=== PATIENT | male | born 1940 | race Caucasian/White ===

== ENCOUNTER 2018-07-20 08:23 | Emergency (ER) | payer MEDICARE, OTHER, SELFPAY ==
[2018-07-20 08:29] VITALS: BP 159/84; PULSE 82; RESP 20; O2SAT 97; BMI 26.6
--- NOTE | 2018-07-20 08:54 | ED.MALEGU ---
HPI - Male Genitourinary General Chief complaint: Urogenital-Male Stated complaint: states has not been able to go to the bathroom 8hr Time Seen by Provider: 07/20/18 08:28 Source: patient and family Mode of arrival: ambulatory Limitations: no limitations History of Present Illness HPI Narrative: Patient complains of inability to urinate since yesterday evening. He states that he kept feeling the urge to urinate yesterday afternoon, and kept going to the bathroom, but could only urinate a small trickle. He states that after this, he could not go at all, but was stuck on [facility] overnight. Pt complains of low abdominal discomfort and a strong urge to urinate. Patient states that he has a history of BPH, but has never had to have a catheter for urinary retention. Patient states he has seen a urologist in the past, but is not currently under the care of one. He states he splits his time between [place] and [facility] with his . No other complaints at this time. Patient states his discomfort is about an 8/10. Nothing makes better, and pressure makes worse. Patient denies nausea, vomiting, diarrhea, fevers, or dysuria. He was feeling fine prior to this episode. Related Data Allergies Allergy/AdvReac Type Severity Reaction Status Date / Time No Known Drug Allergies Allergy Unverified 05/20/18 11:52 Review of Systems Review of Systems All systems reviewed & are unremarkable except as noted in HPI and below Constitutional Denies chills, Denies fever(s), Denies lethargy and Denies weakness Eyes Denies change in vision, Denies eye discharge, Denies irritation and Denies loss of vision ENT Ears, Nose, Mouth, and Throat: Denies change in voice, Denies neck pain and Denies sore throat Cardiovascular Denies chest pain, Denies irregular heart rhythm, Denies lightheadedness, Denies palpitations, Denies dyspnea, Denies dyspnea on exertion and Denies orthopnea Respiratory Denies cough, Denies dyspnea, Denies dyspnea on exertion and Denies wheezing Gastrointestinal Gastrointestinal: Reports abdominal pain (Discomfort, low abdomen.), Denies change in bowel habits, Denies diarrhea, Denies nausea and Denies vomiting Genitourinary Denies hematuria, Denies flank pain, Denies urinary incontinence and Denies urinary urgency Comments: Urinary retention Musculoskeletal Denies neck pain Integumentary/Breasts Denies pruritus, Denies erythema, Denies rash and Denies wounds Neurologic Denies confusion, Denies loss of vision and Denies weakness Psychiatric Denies anxiety, Denies confusion, Denies depression, Denies homicidal ideation and Denies suicidal ideation Endocrine Denies palpitations Hematologic/Lymphatic Denies easy bruising Allergic/Immunologic Denies wheezing [facility] Medical History BPH (benign prostatic hyperplasia) (Acute) Surgical History No pertinent past surgical history (Acute) Social History (Reviewed 07/20/18 @ 09: by Deandra Barragan MD) Smoking Status: Current some day smoker Exam Initial Vital Signs Initial Vital Signs: Vital Signs Pulse Rate 82 07/20/18 08:29 Respiratory Rate 20 07/20/18 08:29 Blood Pressure 159/84 H 07/20/18 08:29 Pulse Oximetry 97 07/20/18 08:29 Const General: cooperative and well developed Nutritional Appearance: well nourished Orientation: alert, awake, oriented x3 and not confused HENOK Head: normocephalic and atraumatic Ears: external ears normal Nose: external nose normal and No nasal discharge Face and sinus: face symmetric and No dry mucous membranes Mouth: oral mucosae normal and moist mucous membranes Teeth and gingiva: dentition normal Eyes General: appearance normal, both eyes and all related structures Eyelids: eyelids normal Conjunctivae: conjunctivae normal Sclera: sclerae normal Pupils: PERRL EOM: EOM intact bilaterally Neck Neck: normal visual inspection, trachea midline, No lymphadenopathy, No midline deformity and No JVD Lymphatic: No lymphedema Chest Chest: normal inspection of the chest Resp Effort & Inspection: normal respiratory effort, able to speak in complete sentences, no respiratory distress and no use of accessory muscles Auscultation: clear to auscultation bilaterally, no rales, no rhonchi and no wheezes Cardio Rate: regular rate Rhythm: regular rhythm Heart Sounds: no click, no gallops, no murmurs and no rubs Pulses: normal peripheral pulses GI Inspection: non-distended Palpation: soft, no hepatosplenomegaly, No guarding, No pulsatile mass and tender (Moderate, low abdomen, with distention of bladder.) Back/Spine/Pelvis Back: No CVA tenderness Cervical Spine: cervical ROM normal and No pain with cervical ROM Thoracic/Lumbar Spine: thoracic and lumbar spine normal to inspection Skin General: no rashes or lesions noted, No jaundice and No petechiae Neuro General: alert, oriented x3, gait normal and no focal motor deficits Speech: speech normal Extrem General: full ROM, no clubbing, cyanosis or edema, no pedal edema and no calf tenderness Psych Appearance: well kempt Mental Status: mental status grossly normal Attitude: cooperative Thought Content: normal and suicidality Judgment: judgment good Course Course Narrative: Mcdonnell catheter was placed, with about 1000 cc of output of light yellow urine. This was sent for urinalysis, which was negative. I felt the patient was stable for discharge home. We have discussed the need for follow-up, either with the patient's primary care physician or urologist, this coming week. Patient should leave the Mcdonnell catheter in until followup occurs. We have discussed the usual indications for return. Patient is feeling much better now. Vital Signs - 8 hr 07/20/18 08:29 Pulse Rate 82 Respiratory Rate 20 Blood Pressure 159/84 H Pulse Oximetry 97 MDM - Male Genitourinary Medical Records Attestation: I reviewed the patient's medical records. Lab Data Attestation: I reviewed the patient's lab results. Lab Results 07/20/18 Range/Units 08:45 Urine Color Yellow Urine Appearance Clear Urine pH 5.0 (4.5-8.0) Ur Specific [place] 1.015 (1.000-1.035) Urine Protein Negative (Negative) Urine Glucose (UA) Negative (Negative) g/dL Urine Ketones Negative (NEGATIVE) Urine Occult Blood 2+ H (Negative) Urine Nitrate Negative (Negative) Urine Bilirubin Negative (NEGATIVE) Urine Urobilinogen 0.2 (0.2) E.U./dL Ur Leukocyte Esterase Negative (NEGATIVE) Urine RBC 0-1/hpf (0-5/HPF) Urine WBC None seen (0-5/HPF) Ur Squamous Epith Cells 0-1 /hpf Urine Bacteria Occasional (0-1) (None) Ur Culture Indicated? Cult not indicated Micro UA Comment Not Reportable Discharge Plan Departure Patient Disposition: Home Clinical Impression: Acute urinary retention Discharge Date/Time: 07/20/18 10:42 Interventions: ED Discharge Assessment Last Done: 07/20/18 10:42 Instructions: DI for Urinary Retention in Men Activity Restrictions/Additional Instructions: Please keep the catheter in until seen by either Primary Care or urology. Referrals: [facility] [Provider Group] [facility] [Provider Group] (Please call tomorrow for an appointment to be seen this week.)
[2018-07-20 09:02] LABS: WBC Urine None Seen (0-5/HPF)
[2018-07-20 09:03] LABS: Appearance Urine UA CLEAR; Bilirubin Urine UA NEGATIVE (NEGATIVE); Color Urine UA YELLOW; Glucose Urine UA NEGATIVE (Negative); Ketones Urine UA NEGATIVE (NEGATIVE); Leukocyte Esterase Urine UA NEGATIVE (NEGATIVE); Nitrite Urine UA NEGATIVE (Negative); Occult Blood Urine UA 2+ (Negative); Protein Urine UA NEGATIVE (Negative); Specific Gravity Urine UA 1.015 (1.000-1.035); Urobilinogen Urine UA 0.2 E.U./dL (0.2)
--- NOTE | 2018-07-20 09:03 | ED_ITS ---
HPI - Male Genitourinary General Chief complaint: Urogenital-Male Stated complaint: states has not been able to go to the bathroom 8hr Time Seen by Provider: 07/20/18 08:28 Source: patient and family Mode of arrival: ambulatory Limitations: no limitations History of Present Illness HPI Narrative: Patient complains of inability to urinate since yesterday evening. He states that he kept feeling the urge to urinate yesterday afternoon , and kept going to the bathroom, but could only urinate a small trickle. He states that after this, he could not go at all, but was stuck on [facility] overnight. Pt complains of low abdominal discomfort and a strong urge to urinate. Patient states that he has a history of BPH, but has never had to have a catheter for urinary retention. Patient states he has seen a urologist in the past, but is not currently under the care of one. He states he splits his time between [place] and [facility] with his . No other complaints at this time. Patient states his discomfort is about an 8/10. Nothing makes better, and pressure makes worse. Patient denies nausea, vomiting, diarrhea, fevers, or dysuria. He was feeling fine prior to this episode. Related Data Allergies Allergy/AdvReac Type Severity Reaction Status Date / Time No Known Drug Allergies Allergy Unverified 05/20/18 11:52 Review of Systems Review of Systems All systems reviewed & are unremarkable except as noted in HPI and below Constitutional Denies chills, Denies fever(s), Denies lethargy and Denies weakness Eyes Denies change in vision, Denies eye discharge, Denies irritation and Denies loss of vision ENT Ears, Nose, Mouth, and Throat: Denies change in voice, Denies neck pain and Denies sore throat Cardiovascular Denies chest pain, Denies irregular heart rhythm, Denies lightheadedness, Denies palpitations, Denies dyspnea, Denies dyspnea on exertion and Denies orthopnea Respiratory Denies cough, Denies dyspnea, Denies dyspnea on exertion and Denies wheezing Gastrointestinal Gastrointestinal: Reports abdominal pain (Discomfort, low abdomen.), Denies change in bowel habits, Denies diarrhea, Denies nausea and Denies vomiting Genitourinary Denies hematuria, Denies flank pain, Denies urinary incontinence and Denies urinary urgency Comments: Urinary retention Musculoskeletal Denies neck pain Integumentary/Breasts Denies pruritus, Denies erythema, Denies rash and Denies wounds Neurologic Denies confusion, Denies loss of vision and Denies weakness Psychiatric Denies anxiety, Denies confusion, Denies depression, Denies homicidal ideation and Denies suicidal ideation Endocrine Denies palpitations Hematologic/Lymphatic Denies easy bruising Allergic/Immunologic Denies wheezing [facility] Medical History BPH (benign prostatic hyperplasia) (Acute) Surgical History No pertinent past surgical history (Acute) Social History (Reviewed 07/20/18 @ 09: by Deandra Barragan MD) Smoking Status: Current some day smoker Exam Initial Vital Signs Initial Vital Signs: Vital Signs Pulse Rate 82 07/20/18 08:29 Respiratory Rate 20 07/20/18 08:29 Blood Pressure 159/84 H 07/20/18 08:29 Pulse Oximetry 97 07/20/18 08:29 Const General: cooperative and well developed Nutritional Appearance: well nourished Orientation: alert, awake, oriented x3 and not confused HENMD Head: normocephalic and atraumatic Ears: external ears normal Nose: external nose normal and No nasal discharge Face and sinus: face symmetric and No dry mucous membranes Mouth: oral mucosae normal and moist mucous membranes Teeth and gingiva: dentition normal Eyes General: appearance normal, both eyes and all related structures Eyelids: eyelids normal Conjunctivae: conjunctivae normal Sclera: sclerae normal Pupils: PERRL EOM: EOM intact bilaterally Neck Neck: normal visual inspection, trachea midline, No lymphadenopathy, No midline deformity and No JVD Lymphatic: No lymphedema Chest Chest: normal inspection of the chest Resp Effort & Inspection: normal respiratory effort, able to speak in complete sentences, no respiratory distress and no use of accessory muscles Auscultation: clear to auscultation bilaterally, no rales, no rhonchi and no wheezes Cardio Rate: regular rate Rhythm: regular rhythm Heart Sounds: no click, no gallops, no murmurs and no rubs Pulses: normal peripheral pulses GI Inspection: non-distended Palpation: soft, no hepatosplenomegaly, No guarding, No pulsatile mass and tender (Moderate, low abdomen, with distention of bladder.) Back/Spine/Pelvis Back: No CVA tenderness Cervical Spine: cervical ROM normal and No pain with cervical ROM Thoracic/Lumbar Spine: thoracic and lumbar spine normal to inspection Skin General: no rashes or lesions noted, No jaundice and No petechiae Neuro General: alert, oriented x3, gait normal and no focal motor deficits Speech: speech normal Extrem General: full ROM, no clubbing, cyanosis or edema, no pedal edema and no calf tenderness Psych Appearance: well kempt Mental Status: mental status grossly normal Attitude: cooperative Thought Content: normal and suicidality Judgment: judgment good Course Course Narrative: Mcdonnell catheter was placed, with about 1000 cc of output of light yellow urine. This was sent for urinalysis, which was negative. I felt the patient was stable for discharge home. We have discussed the need for follow-up, either with the patient's primary care physician or urologist, this coming week. Patient should leave the Mcdonnell catheter in until followup occurs. We have discussed the usual indications for return. Patient is feeling much better now. Vital Signs - 8 hr 07/20/18 08:29 Pulse Rate 82 Respiratory Rate 20 Blood Pressure 159/84 H Pulse Oximetry 97 MDM - Male Genitourinary Medical Records Attestation: I reviewed the patient's medical records. Lab Data Attestation: I reviewed the patient's lab results. Lab Results 07/20/18 Range/Units 08:45 Urine Color Yellow Urine Appearance Clear Urine pH 5.0 (4.5-8.0) Ur Specific [place] 1.015 (1.000-1.035) Urine Protein Negative (Negative) Urine Glucose (UA) Negative (Negative) g/dL Urine Ketones Negative (NEGATIVE) Urine Occult Blood 2+ H (Negative) Urine Nitrate Negative (Negative) Urine Bilirubin Negative (NEGATIVE) Urine Urobilinogen 0.2 (0.2) E.U./dL Ur Leukocyte Esterase Negative (NEGATIVE) Urine RBC 0-1/hpf (0-5/HPF) Urine WBC None seen (0-5/HPF) Ur Squamous Epith Cells 0-1 /hpf Urine Bacteria Occasional (0-1) (None) Ur Culture Indicated? Cult not indicated Micro UA Comment Not Reportable Discharge Plan Departure Patient Disposition: Home Clinical Impression: Acute urinary retention Discharge Date/Time: 07/20/18 10:42 Interventions: ED Discharge Assessment Last Done: 07/20/18 10:42 Instructions: DI for Urinary Retention in Men Activity Restrictions/Additional Instructions: Please keep the catheter in until seen by either Primary Care or urology. Referrals: [facility] [Provider Group] [facility] [Provider Group] (Please call tomorrow for an appointment to be seen this week.)
[2018-07-20 09:10] LABS: Bacteria Urine Occasional (0-1); RBC Urine 0-1/HPF (0-5/HPF); Squamous Epithelial Cell Urine 0-1 /HPF
[2018-07-20 09:11] LABS: Culture Indicated Urine Cult Not Indicated
[2018-07-20 09:39] VITALS: BP 119/79; RESP 15; O2SAT 97
[2018-07-20 10:37] VITALS: BP 117/64; PULSE 85; RESP 18; O2SAT 100
--- NOTE | 2018-07-20 10:40 | PC.NURSE ---
pt discharged with a leg bag with his catheter. instructions reviewed. pt demonstrated and verbalized an understanding.
== END 2018-07-20 10:42 | disposition home or self-care (01) ==
PROVIDERS: Emergency Provider Emergency Medicine
DX: R33.9 Retention of urine, unspecified (principal)
CPT/HCPCS: 51701; 51798; 81001; 99283; 99284

== ENCOUNTER → 2019-05-12 14:30 | Outpatient (CLI) | payer MEDICARE, OTHER, SELFPAY ==
--- NOTE | 2019-05-12 | DI.RAD.S_ITS ---
PROCEDURE: XR CHEST 2V INDICATIONS: COUGH, HISTORY OF SMOKING TECHNIQUE: 2 views of the chest were acquired. COMPARISON: None. FINDINGS: Surgical changes and devices: None. Lungs and pleura: Lungs are clear. No pleural effusions or pneumothorax. There is a calcified granuloma in the right lower lobe. Mediastinum: Mediastinal contours are normal. Heart size is normal. Bones and chest wall: No suspicious bony abnormalities. Soft tissues appear unremarkable. IMPRESSION: 1. No acute cardiopulmonary disease. 2. A calcified granuloma in the right lower lobe. Dictated by: Chris Nicole M.D. on 05/12/2019 at 16:18 Approved by: Chris Nicole M.D. on 05/12/2019 at 16:20
== END ==
PROVIDERS: Visit Provider Internal Medicine
DX: R05 Cough (principal); J84.10 Pulmonary fibrosis, unspecified; Z87.891 Personal history of nicotine dependence
CPT/HCPCS: 71046

== ENCOUNTER → 2019-06-26 08:50 | Outpatient (CLI) | payer MEDICARE, OTHER, SELFPAY ==
--- NOTE | 2019-07-03 08:44 | PM.PFT.1 ---
Pulmonary Function Test Referral & Results Date Patient Seen: 06/26/19 Requesting provider: Robert Riley Results: The spirometry demonstrates an FVC of 4.10 L which is 113% of predicted. The FEV1 was measured at 2.18 L which is 84% of predicted. The FEV1/FVC ratio was 53 which is 73% of predicted. Following the administration of bronchodilator there was a 60% improvement in FEV1 and a 60% improvement in FEF 25-75%. Lung volumes show an SVC of 4.21 L which is 105% of predicted. The diffusing capacity was measured at 25.53 which is 90% of predicted. The maximum voluntary ventilation was normal Interpretation: This study demonstrates mild obstructive lung disease based on reduction FEV1 and shape a flow volume loop with evidence of benefit following bronchodilator as above
== END ==
PROVIDERS: PCP Internal Medicine; Visit Provider Internal Medicine
DX: R05 Cough (principal); F17.200 Nicotine dependence, unspecified, uncomplicated
CPT/HCPCS: 94060; 94726; 94729

== ENCOUNTER → 2019-12-04 14:29 | Outpatient (CLI) | payer MEDICARE, SELFPAY ==
[2019-12-04 15:22] LABS: Alanine Aminotransferase 18 IU/L (<50); Albumin 4.1 g/dL (3.5-5.0); Albumin Globulin Ratio 1.2 (1.0-2.8); Alkaline Phosphatase 92 U/L (38-126); Aspartate Aminotransferase 33 IU/L (17-59); BUN Creatinine Ratio 23.7 (6-22); Bilirubin Total 0.4 mg/dL (0.2-1.3); Blood Urea Nitrogen 18 mg/dL (9-20); Calcium 9.3 mg/dL (8.4-10.2); Carbon Dioxide 27 mmol/L (22-32); Chloride 108 mmol/L (98-107); Estimated Glomerular Filt Rate > 60.0 mL/min (>60); Globulin 3.3 g/dL (1.7-4.1); Glucose 102 mg/dL (80-110); HEMOLYSIS < 15 (0-50); Potassium 4.6 mmol/L (3.4-5.1); Sodium 141 mmol/L (137-145); Total Protein 7.4 g/dL (6.3-8.2)
[2019-12-04 16:15] LABS: TSH w/ Reflex to FT4 0.56 uIU/mL (0.47-4.68)
[2019-12-05 07:14] LABS: PSA Free % 24.6 % (.); PSA, Total 6.3 ng/mL (0.0-4.0)
== END ==
PROVIDERS: PCP Internal Medicine; Referring Provider Internal Medicine; Visit Provider Internal Medicine
DX: I48.92 Unspecified atrial flutter (principal); N40.1 Benign prostatic hyperplasia with lower urinary tract symptoms; R31.9 Hematuria, unspecified
CPT/HCPCS: 36415; 80053; 84153; 84154; 84443

== ENCOUNTER 2020-01-08 06:58 | Emergency (ER) | payer MEDICARE, SELFPAY ==
[2020-01-08 07:17] VITALS: BP 185/90; PULSE 72; RESP 15; TEMP 36.6; O2SAT 97; BMI 27.3
--- NOTE | 2020-01-08 08:01 | ED_ITS ---
HPI - Male Genitourinary General Chief complaint: Urogenital-Male Stated complaint: urinary retention Time Seen by Provider: 01/08/20 07:02 Source: patient Mode of arrival: Ambulatory Limitations: no limitations History of Present Illness HPI Narrative: 79-year-old gentleman with a history of BPH who presents with his now 3rd episode of acute urinary retention. He currently is on 0.4 mg of tamsulosin. His urologist is Dr. Tobar. He describes no changes in medications, no recent antihistamines, nothing to obviously cause an episode of acute urinary retention. Related Data Home Medications Medication Instructions Recorded Confirmed No Known Home Medications 12/31/18 12/31/18 Allergies Allergy/AdvReac Type Severity Reaction Status Date / Time No Known Drug Allergies Allergy Verified 12/31/18 11:46 Review of Systems Review of Systems Narrative: Pertinent positive and negative findings as per HPI Remainder of review of systems is otherwise unremarkable for Constitutional: Fevers, chills, weakness ENT: No sore throat, neck pain, ear pain CV: Chest pain, palpitations, dyspnea on exertion Respiratory: Cough, wheeze, dyspnea GI: Nausea, vomiting, diarrhea, change in bowel habits, black or bloody stools MS: Muscle weakness, numbness, joint swelling or warmth Skin: Rashes, nonhealing lesions Neuro: Syncope, dizziness, tingling Patient History Medical History BPH (benign prostatic hyperplasia) (Acute) Surgical History No pertinent past surgical history (Acute) Social History Smoking Status: Current some day smoker Smoking Status: Current some day smoker alcohol intake frequency: a few times a week Substance Use Type: does not use Exam Narrative Exam Narrative: General: Healthy appearing, in no acute distress. Able to give a complete and coherent history. Well-nourished well-developed Neck: No JVD, supple Respiratory: Lungs are clear to auscultation, no wheezing no rales no rhonchi. Full and symmetrical air movement Cardiac: Regular rate and rhythm no murmurs no bruits Abdomen: Soft nontender good bowel tones, no flank pain Skin: Warm and dry, no rashes Psych: Cooperative, appropriate insight and affect Mcdonnell catheter placed without difficulty. Initial return of 800 cc of clear urine Initial Vital Signs Initial Vital Signs: Vital Signs Temperature 97.9 F 01/08/20 07:17 Pulse Rate 72 01/08/20 07:17 Respiratory Rate 15 01/08/20 07:17 Blood Pressure 185/90 H 01/08/20 07:17 Pulse Oximetry 97 01/08/20 07:17 Course Orders Ordered: ED Orders 01/08/20 07:35 Urine Microscopic Stat Discontinued Medications Lidocaine HCl (Urojet) 5 ml TOP NOW ONE Stop: 01/08/20 07:20 Vital Signs Vital signs: Vital Signs - 8 hr 01/08/20 07:17 Temperature 97.9 F Pulse Rate 72 Respiratory Rate 15 Blood Pressure 185/90 H Pulse Oximetry 97 MDM - Male Genitourinary Medical Records Attestation: I reviewed the patient's medical records. Lab Data Labs: Lab Results 01/08/20 Range/Units 07:35 Urine RBC 5-10/hpf H (0-5/HPF) Urine WBC 0-1/hpf (0-5/HPF) Urine Bacteria Few (2-10) H (None) Ur Culture Indicated? Cult not indicated Urine Dip Bedside Urine Glucose Negative Bedside Urine Bilirubin - Negative Bedside Urine Ketone - Negative Urine Specific [place] 1.020 Bedside Urine Occult Blood + Bedside Urine pH 6.0 Bedside Urine Protein - Negative Bedside Urine Urobilinogen - Negative Bedside Urine Nitrite - Negative Bedside Urine Leukocytes - Negative Esterase MDM Narrative Medical decision making narrative: Acute urinary retention is 79-year-old gentleman with a history of BPH already on 0.4 mg of tamsulosin. Mcdonnell catheter is placed. Will have him contact Dr. Tobar's office for follow-up next week with removal of urinary catheter and suggestions on management of his BPH with recurrent acute urinary retention. He is comfortable with managing a Mcdonnell at h ome, given I leg bag and discharged home. Discharge Plan Departure Patient Disposition: Home Clinical Impression: Acute retention of urine BPH (benign prostatic hyperplasia) Qualifiers: Lower urinary tract symptom presence: symptoms present Lower urinary tract symptom detail: urinary obstruction Qualified Code(s): N40.1 - Benign prostatic hyperplasia with lower urinary tract symptoms Instructions: DI for Urinary Retention in Men Activity Restrictions/Additional Instructions: Thank you for coming in today You had approximately 800 cc of urine in your bladder when we put the Mcdonnell ca theter in. This is enough urine to definitely cause significant pain. I am going to suggest that you increase your current dose of 0.4 mg, 1 pill, of tamsulosin/Flomax up to 2 pills a day. You can take both of these at 1 time or you can spread it so that you are taking 1 in the morning and 1 in the evening. When you get home this evening, please contact Dr. Tobar's office for an emergency room follow-up regarding acute urinary retention. They will take the catheter out for you and you and Dr. Tobar will need to discuss further management and whether you actually need any type of procedure to help with your enlarged prostate. If you have any difficulties with your catheter, developed fevers chills or other complications please feel free to return to the emergency department. I wish you the best Prescriptions: No Action No Known Home Medications RF: 0 Referrals: Robert Riley MD [Primary Care Provider] -
[2020-01-08 08:15] LABS: Bacteria Urine Few (2-10); RBC Urine 5-10/HPF (0-5/HPF); WBC Urine 0-1/HPF (0-5/HPF)
[2020-01-08 08:16] LABS: Culture Indicated Urine Cult Not Indicated
[2020-01-08 08:35] VITALS: BP 116/56; PULSE 62; RESP 16; O2SAT 98
== END 2020-01-08 08:42 | disposition home or self-care (01) ==
PROVIDERS: Emergency Provider Emergency Medicine; PCP Internal Medicine
DX: R33.9 Retention of urine, unspecified (principal); N40.1 Benign prostatic hyperplasia with lower urinary tract symptoms
CPT/HCPCS: 51798; 81003; 81015; 99283; 99284

== ENCOUNTER 2020-01-31 00:31 | Emergency (ER) | payer MEDICARE, SELFPAY ==
[2020-01-31 00:31] VITALS: BP 155/70; PULSE 78; RESP 16; TEMP 36.6; O2SAT 97; BMI 26.6
[2020-01-31 00:45] VITALS: BP 155/70; PULSE 75; RESP 16; O2SAT 97
[2020-01-31] MEDS: LIDOCAINE 2% (UROJET) 5 ML GEL TOP (00:46)
--- NOTE | 2020-01-31 01:26 | ED_ITS ---
HPI - Male Genitourinary General Chief complaint: Urogenital-Male Stated complaint: states urinary problem Time Seen by Provider: 01/31/20 00:37 History of Present Illness HPI Narrative: 79-year-old gentleman with recurrent episodes of acute urinary retention. Most recently seen January 07 the Mcdonnell catheter was placed. Was seen by his urologist, Dr. Tobar, and catheter was min removed. He states that he has had to self cath twice in the interval. This evening he noted lanie blood comin g from his penis with increasing pain in his bladder. No fever, cough, chills, diarrhea, vomiting, chest pain, dyspnea, flank pain. Related Data Home Medications Medication Instructions Recorded Confirmed No Known Home Medications 12/31/18 12/31/18 Allergies Allergy/AdvReac Type Severity Reaction Status Date / Time No Known Drug Allergies Allergy Verified 12/31/18 11:46 Review of Systems Review of Systems Narrative: Pertinent positive and negative findings as per HPI Remainder of review of systems is otherwise unremarkable for Constitutional: Fevers, chills, weakness ENT: No sore throat, neck pain, ear pain CV: Chest pain, palpitations, dyspnea on exertion Respiratory: Cough, wheeze, dyspnea GI: Nausea, vomiting, diarrhea, change in bowel habits, black or bloody stools MS: Muscle weakness, numbness, joint swelling or warmth Neuro: Syncope, dizziness, tingling Patient History Medical History (Updated 01/31/20 @ 17:36 by Jeffrey Corbin MD) BPH (benign prostatic hyperplasia) (Acute) Paroxysmal atrial fibrillation (Acute) Surgical History No pertinent past surgical history (Acute) Social History Smoking Status: Current some day smoker Smoking Status: Current some day smoker alcohol intake frequency: a few times a week Substance Use Type: does not use Exam Narrative Exam Narrative: General: Alert appropriate in no acute distress Respiratory: Able to speak in full sentences, no obvious respiratory distress Skin: No obvious rashes, warm and dry Neurologic: Grossly intact no obvious asymmetries or abnormalities Psych, appropriate insight and affect, cooperative : 350 cc noted on bladder scan. Initial Mcdonnell catheter is placed with lanie blood at approximately 300 cc of fluid returned. Three way Mcdonnell catheter is placed to irrigate clots. Initial Vital Signs Initial Vital Signs: Vital Signs Temperature 97.8 F 01/31/20 00:31 Pulse Rate 78 01/31/20 00:31 Respiratory Rate 16 01/31/20 00:31 Blood Pressure 155/70 H 01/31/20 00:31 Pulse Oximetry 97 01/31/20 00:31 Course Orders Ordered: Discontinued Medications Ciprofloxacin (Cipro) 500 mg PO NOW ONE Stop: 01/31/20 05:38 Last Admin: 01/31/20 05:52 Dose: 500 mg Documented by: DIOGENES Lidocaine HCl (Urojet) 5 ml TOP NOW ONE Stop: 01/31/20 00:45 Last Admin: 01/31/20 00:46 Dose: 5 ml Documented by: DIOGENES Oxycodone/Acetaminophen (Percocet 5/325) 1 tab PO NOW ONE Stop: 01/31/20 01:29 Last Admin: 01/31/20 02:00 Dose: 1 tab Documented by: DOREEN Vital Signs Vital signs: Vital Signs - 8 hr 01/31/20 00:31 01/31/20 00:45 01/31/20 03:00 Temperature 97.8 F Pulse Rate 78 75 74 Respiratory Rate 16 16 16 Blood Pressure 155/70 H 155/70 H 115/56 L Pulse Oximetry 97 97 97 [facility] - Male Genitourinary Medical Records Attestation: I reviewed the patient's medical records. [facility] Narrative Medical decision making narrative: Initially single Mcdonnell catheter is placed with large amount of clots and gross blood returned. This was removed and a 3 way Mcdonnell was placed with 2L of fluid for irrigation. Significant difficulty in removing a large number of clots. By the end of the initial 2 L fluid,it was still a medium pink but no significant clots were returning. A 2nd 2L of irrigation to try to get to much promotion writer pink prior to discharge home with Mcdonnell catheter in place. After a total of 9 L of bladder irrigation it does look like all of the clots have been removed and there is no continued active bleeding He currently is on Eliquis for an episode of paroxysmal atrial fibrillation approximately 6 months ago. He has not had any recurrent episodes. Will ask him to hold his Eliquis until we have had a chance to get the urinary bleeding resolved. Will need follow-up with urology and primary care early next week Discharge Plan Departure Patient Disposition: Home Clinical Impression: Acute urinary retention, Gross hematuria Discharge Date/Time: 01/31/20 07:42 Instructions: DI for Urinary Retention in Men Activity Restrictions/Additional Instructions: Thank you for coming in today It is hard to know if you had bleeding that caused a clot that cause the acute urinary retention or whether the urinary retention simply occurred caused more bladder distension with increased bleeding and clots. Either way, you had 9 L of fluid to irrigate your bladder to get all the clots out of there and it does not look like you are continuing to bleed at this time. Please stop your Eliquis for at least the next 4 days to allow the bleeding site in your bladder to heal. Mcdonnell catheter is left in place on discharge today. Please contact Dr. Tobar's office on Saturday to arrange for definitive follow-up. I wish you the best Prescriptions: No Action No Known Home Medications RF: 0 Referrals: Robert Riley MD [Primary Care Provider] -
[2020-01-31] MEDS: OXYCODONE/ACETAMINOPHEN 5/325 TABLET 1 TAB PO (02:00)
[2020-01-31 03:00] VITALS: BP 115/56; PULSE 74; RESP 16; O2SAT 97
[2020-01-31 05:30] VITALS: BP 117/72; PULSE 68; RESP 16; O2SAT 99
[2020-01-31 05:36] VITALS: BP 117/72; PULSE 68; RESP 16; O2SAT 97; O2SAT 99
[2020-01-31] MEDS: CIPROFLOXACIN 500 MG TABLET PO (05:52)
--- NOTE | 2020-01-31 07:12 | PC.NURSE ---
provider ordered leg bag. leg bag placed. patient tolerated well.
[2020-01-31 07:16] VITALS: BP 133/73; PULSE 70; RESP 16; O2SAT 97
== END 2020-01-31 07:42 | disposition home or self-care (01) ==
PROVIDERS: Emergency Provider Emergency Medicine; PCP Internal Medicine
DX: R33.8 Other retention of urine (principal); R31.0 Gross hematuria; I48.0 Paroxysmal atrial fibrillation; Z79.01 Long term (current) use of anticoagulants; T83.098A Other mechanical complication of other urinary catheter, initial encounter
CPT/HCPCS: 51700; 51701; 51798

== ENCOUNTER 2020-01-31 10:44 | Observation (INO) | payer MEDICARE, SELFPAY ==
[2020-01-31] VITALS (17 sets, daily range): BP systolic 107–184; BP diastolic 56–89; PULSE 60–85; RESP 12–20; TEMP 36.4–37; O2SAT 94–99; BMI 26.6
[2020-01-31 11:46] LABS: Add Manual Diff / Slide Review NO; Basophils Absolute Auto 100 /uL (0-100); Basophils Percent Auto 0.8 % (0-2); Eosinophils Absolute Auto 200 /uL (0-450); Eosinophils Percent Auto 1.4 % (2-4); Hematocrit 38.3 % (41-53); Hemoglobin 12.5 g/dL (13.5-17.5); Lymphocytes Absolute Auto 1400 /uL (1100-4500); Lymphocytes Percent Auto 12.1 % (25-40); Mean Corpuscular HGB Conc 32.5 % (30-36); Mean Corpuscular Hemoglobin 28.7 PG (26-34); Mean Corpuscular Volume 88.1 fL (80-100); Monocytes Absolute Auto 700 /uL (0-900); Monocytes Percent Auto 6.4 % (3-14); Neutrophils Absolute Auto 9200 /uL (1500-7000); Neutrophils Percent Auto 79.3 % (50-75); Platelet Count 240 X10^3/uL (150-400); Red Blood Cell Count 4.34 X10^6/uL (4.5-5.9); Red Cell Distribution Width 13.9 % (11.6-14.8); White Blood Cell Count 11.5 X10^3/uL (4.5-11.0)
[2020-01-31 11:52] LABS: INR 1.3 (0.9-1.3); Prothrombin Time 14.6 SECONDS (10.1-12.7)
[2020-01-31 11:55] LABS: PTT Partial Thromboplastin Tim 43 SECONDS (26.4-36.2)
[2020-01-31 11:56] LABS: Blood Urea Nitrogen 19 mg/dL (9-20); Calcium 9.6 mg/dL (8.4-10.2); Carbon Dioxide 29 mmol/L (22-32); Chloride 107 mmol/L (98-107); Estimated Glomerular Filt Rate > 60.0 mL/min (>60); Glucose 103 mg/dL (80-110); HEMOLYSIS < 15 (0-50); Sodium 140 mmol/L (137-145)
--- NOTE | 2020-01-31 12:26 | ED_ITS ---
HPI - Male Genitourinary General Chief complaint: Urogenital-Male Stated complaint: Catheter jammed Time Seen by Provider: 01/31/20 11:23 Source: patient Mode of arrival: Ambulatory Limitations: no limitations History of Present Illness HPI Narrative: The patient presents with urinary retention and hematuria. The doris hernandez developed urinary retention January 07, for which a Mcdonnell was placed. He had a 1 time visit with Urology, Dr. Tobar. He has not yet had urology follow-up. Who presented last night with significant hematuria, his irrigated frequently through the night. This morning, his urine seemed to clear, he was discharged. He has a prior history of PAF, but has not experienced a known episode of AFib for years. Apparently his PCM has consider stopping Eliquis. A cardiology consult was pending. The ER doctor last night instructed the patient to stop the Eliquis. The patient return the ER shortly after discharge, with recurrent hematuria and lower abdominal pain consistent with urinary retention once again. His Mcdonnell was changed, a 22 gauge was placed. Large amounts of clots were released. Pain improved. The patient has been managed in the ER this time for total of 6 hours, he is still experiencing intermittent clots with symptoms of obstruction. He has no URI symptoms, no fever chills, no cough or dyspnea. Other than the abdominal pain noted above he has no other abdominal symptoms. He has no GI symptoms. Related Data Home Medications Medication Instructions Recorded Confirmed No Known Home Medications 12/31/18 12/31/18 Allergies Allergy/AdvReac Type Severity Reaction Status Date / Time No Known Drug Allergies Allergy Verified 12/31/18 11:46 Review of Systems Constitutional Constitutional: Denies chills, Denies fever(s), Denies lethargy and Denies weakness ENT Ears, Nose, Mouth, and Throat: Denies dizziness, Denies nasal congestion and Denies sore throat Cardiovascular Cardiovascular: Denies chest pain, Denies irregular heart rhythm, Denies lig htheadedness, Denies palpitations, Denies dyspnea and Denies dyspnea on exertion Respiratory Respiratory: Denies cough, Denies dyspnea, Denies dyspnea on exertion and Denies wheezing Gastrointestinal Gastrointestinal: Denies abdominal pain, Denies diarrhea, Denies nausea and Denies vomiting Genitourinary Genitourinary: Reports as per HPI Genitourinary: Reports as per HPI Integumentary/Breasts Skin/Breast: Denies erythema and Denies rash Neurologic Neurologic: Denies dizziness and Denies weakness Endocrine Endocrine: Denies palpitations Allergic/Immunologic Allergic/Immunologic: Denies wheezing Patient History Medical History BPH (benign prostatic hyperplasia) (Acute) Paroxysmal atrial fibrillation (Acute) Surgical History No pertinent past surgical history (Acute) Social History Smoking Status: Current some day smoker Smoking Status: Current some day smoker alcohol intake frequency: a few times a week Substance Use Type: does not use Exam Initial Vital Signs Initial Vital Signs: Vital Signs Temperature 97.5 F L 01/31/20 10:58 Pulse Rate 77 01/31/20 10:58 Respiratory Rate 16 01/31/20 10:58 Blood Pressure 145/70 H 01/31/20 10:58 Pulse Oximetry 95 01/31/20 10:58 Const General: cooperative and well developed Nutritional Appearance: well nourished Resp Effort & Inspection: normal respiratory effort and able to speak in complete sentences Auscultation: clear to auscultation bilaterally, no rales, no rhonchi and no wheezes Cardio Rate: regular rate Rhythm: regular rhythm Heart Sounds: S1 normal, S2 normal, no click, no gallops, no murmurs and no rubs Pulses: normal peripheral pulses GI Other: Suprapubic distention with tenderness. No guarding or rebound. Normal bowel sounds. Abdomen is otherwise benign. Testes: normal Other: Mcdonnell is in place, the phallus is otherwise normal. Back/Spine/Pelvis Back: No CVA tenderness Course Course Course Narrative: The patient has required intermittent bladder irrigation for hours. His labs are stable. We have been unable to use discharge him due to recurrent symptoms. I have discussed the case with the hospitalist, Dr. Moore. The patient will be admitted. Orders Ordered: ED Orders 01/31/20 11:39 Basic Metabolic Panel Stat Complete Blood Count AUTO DIFF Stat PTT [Partial Thromboplastin Time] Stat Prothrombin Time INR Stat Hydromorphone HCl (Dilaudid) 0.5 mg IV Q2H PRN PRN Reason: Pain, Severe (7-10) Sodium Chloride (Normal Saline 0.9%) 1,000 mls @ 125 mls/hr IV CONT SALTY Sodium Chloride (Normal Saline 0.9%) 1,000 mls @ 125 mls/hr IV CONT SALTY Discontinued Medications Hydromorphone HCl (Dilaudid) 0.5 mg IM NOW ONE Stop: 01/31/20 13:04 Last Admin: 01/31/20 13:07 Dose: 0.5 mg Documented by: HANNAH Lidocaine HCl (Urojet) 5 ml TOP NOW ONE Stop: 01/31/20 12:20 Last Admin: 01/31/20 13:08 Dose: Not Given Documented by: HANNAH Vital Signs Vital signs: Vital Signs - 8 hr 01/31/20 10:58 01/31/20 11:26 01/31/20 11:30 Temperature 97.5 F L Pulse Rate 77 67 65 Respiratory Rate 16 Blood Pressure 145/70 H 107/61 Pulse Oximetry 95 95 94 01/31/20 12:00 01/31/20 12:30 01/31/20 13:00 Temperature Pulse Rate 75 70 63 Respiratory Rate Blood Pressure 147/69 H 165/85 H Pulse Oximetry 98 98 99 01/31/20 13:30 01/31/20 14:00 01/31/20 14:16 Temperature Pulse Rate 85 73 62 Respiratory Rate Blood Pressure 184/89 H 107/56 L Pulse Oximetry 98 96 98 01/31/20 14:19 01/31/20 14:30 01/31/20 15:00 Temperature Pulse Rate 63 67 70 Respiratory Rate Blood Pressure 111/64 115/63 Pulse Oximetry 98 97 96 MDM - Male Genitourinary Lab Data Result diagrams: 01/31/20 11:39 01/31/20 11:39 Labs: Lab Results 01/31/20 01/31/20 01/31/20 Range/Units 11:39 11:39 11:39 WBC 11.5 H (4.5-11.0) X10^3/uL RBC 4.34 L (4.5-5.9) X10^6/uL Hgb 12.5 L (13.5-17.5) g/dL Hct 38.3 L (41-53) % MCV 88.1 (80-100) fL MCH 28.7 (26-34) PG MCHC 32.5 (30-36) % RDW 13.9 (11.6-14.8) % Plt Count 240 (150-400) X10^3/uL Neut % (Auto) 79.3 H (50-75) % Lymph % (Auto) 12.1 L (25-40) % [place] % (Auto) 6.4 (3-14) % Eos % (Auto) 1.4 L (2-4) % Baso % (Auto) 0.8 (0-2) % Neut # (Auto) 9200 H (8354-2993) /uL Lymph # (Auto) 1400 (4707-9783) /uL [place] # (Auto) 700 (0-900) /uL Eos # (Auto) 200 (0-450) /uL Baso # (Auto) 100 (0-100) /uL PT 14.6 H (10.1-12.7) SECONDS INR 1.3 (0.9-1.3) APTT 43 H (26.4-36.2) SECONDS Sodium 140 (137-145) mmol/L Potassium 5.0 (3.4-5.1) mmol/L Chloride 107 (98-107) mmol/L Carbon Dioxide 29 (22-32) mmol/L BUN 19 (9-20) mg/dL Creatinine 0.76 (0.66-1.25) mg/dL Estimated GFR > 60.0 (>60) mL/min BUN/Creatinine Ratio 25.0 H (6-22) Glucose 103 (80-110) mg/dL Calcium 9.6 (8.4-10.2) mg/dL Discharge Plan Departure Patient Disposition: Admitted as Observation Clinical Impression: Acute urinary retention, Gross hematuria BPH (benign prostatic hyperplasia) Qualifiers: Lower urinary tract symptom presence: symptoms present Lower urinary tract symptom detail: urinary obstruction Qualified Code(s): N40.1 - Benign prostatic hyperplasia with lower urinary tract symptoms Discharge Date/Time: 01/31/20 17:01 Admit Date/Time: 01/31/20 17:01 Admit Provider: Francois Moore
[2020-01-31] MEDS: LIDOCAINE 2% (UROJET) 5 ML GEL (13:04)
[2020-01-31] MEDS: HYDROMORPHONE 1 MG INJ 0.5 MG IM (13:07)
--- NOTE | 2020-01-31 14:07 | PC.NURSE ---
Patient came into the Ed with urinary blockage. He was here last night and discharged with a 3 way 16 fr urinary cath. When he came into the ED to day the 16 fr cath was removed and replaced with a larger [address] Continuous bladder irrigation was started. 4000 mls were instilled by 1410 and 4,550 mls. Multiple clots were evacuated by indra syringe and the patient began to feel relief.
--- NOTE | 2020-01-31 14:31 | PC.NURSE ---
Patient had an additional 800 mls output. The fluid is pinked tinged and not as red as before. He is taking PO fluids and will be up for a walk to see if he tolerates it well.
--- NOTE | 2020-01-31 17:51 | PC.NURSE ---
At this time 8150 mls have been instilled through bladder irrigation and 8750 has been returned. 2000mls have been hung at 1753.
--- NOTE | 2020-01-31 18:18 | PC.NURSE ---
2080mls were removed from the 2l bag and the cysto tubing was changed. A new 3L bag was hung at 1820.
--- NOTE | 2020-01-31 18:22 | P.HP_ITS ---
History of Present Illness History of Present Illness Date Patient Seen: 01/31/20 Time Patient Seen: 17:30 Chief complaint: Catheter jammed Narrative: Patient is a 79-year-old male with history of BPH, paroxysmal atrial fibrillation who presented back to the emergency department due to urinary bleeding and retention. Patient was seen in the ER initially on January 07 with a 3rd episode of urinary retention. A Mcdonnell catheter was placed with 800 cc urine output. He was sent home with Mcdonnell catheter and instructions to increase tamsulosin dose to 2 capsules daily. He saw his urologist Dr. Tobar about 1 week later and had catheter removed. Subsequently he was doing as needed self catheterization. On January 30 shortly after midnight patient presented back to the ER with complaints of bladder pain and lanie blood in the urine. Mcdonnell catheter was placed with 300 cc fluid noted to be large amount of blood and clots. He had 3 way Mcdonnell placed with about 9 L NS bladder irrigation overnight in the ER until urine cleared up and he was able to go home. However, he return to the ER just several hours later due to bleeding from his penis around the catheter and blood clots in the catheter tubing causing urinary retention. He has been getting additional bladder irrigation with during collar improving but continued passage of clots. He is now being admitted for hospital overnight observation to continue bladder irrigation. Of note, patient has been taking Eliquis for episode of paroxysmal AFib while on a cruise in [facility]. He states he has not had any more episodes of atrial fibrillation since then. His last dose of Eliquis was evening of January 29, about 24 hours ago. He denies any fevers, chills, nausea, vomiting, chest pain, palpitations or dyspnea. Current labs show WBC 11.5 with 79% neutrophils, hemoglobin 12.5, platelets 240, sodium 140, potassium 5.0, creatinine 0.76. His PSA on 12/04/2019 was 6.3. He does not have any history of bladder or prostate surgeries. Patient History Medical History BPH (benign prostatic hyperplasia) (Acute) Paroxysmal atrial fibrillation (Acute) Surgical History No pertinent past surgical history (Acute) Family & Social History Safety & Behavioral: Feels Safe in Current Yes Environment Been Physically Hurt or No Threatened By a Person Tobacco & Substance use: Smoking Status Current some day smoker alcohol intake frequency a few times a week Substance Use Type does not use Meds Home Medications and Allergies Home Medications Medication Instructions Recorded Confirmed Type No Known Home Medications 12/31/18 12/31/18 History Allergies Allergy/AdvReac Type Severity Reaction Status Date / Time No Known Drug Allergies Allergy Verified 12/31/18 11:46 Review of Systems Review of Systems ROS: Yes All systems reviewed with the patient and are negative except as otherwise documented Exam Vital Signs (past 8 hours): - 01/31/20 10:58 01/31/20 11:26 01/31/20 11:30 Temperature 97.5 F L Pulse Rate 77 67 65 Respiratory Rate 16 Blood Pressure 145/70 H 107/61 Pulse Oximetry 95 95 94 01/31/20 12:00 01/31/20 12:30 01/31/20 13:00 Temperature Pulse Rate 75 70 63 Respiratory Rate Blood Pressure 147/69 H 165/85 H Pulse Oximetry 98 98 99 01/31/20 13:30 01/31/20 14:00 01/31/20 14:16 Temperature Pulse Rate 85 73 62 Respiratory Rate Blood Pressure 184/89 H 107/56 L Pulse Oximetry 98 96 98 01/31/20 14:19 01/31/20 14:30 01/31/20 15:00 Temperature Pulse Rate 63 67 70 Respiratory Rate Blood Pressure 111/64 115/63 Pulse Oximetry 98 97 96 01/31/20 17:55 Temperature Pulse Rate 60 Respiratory Rate 12 Blood Pressure 148/67 H Pulse Oximetry 96 Oxygen Delivery Method Room Air Narrative Exam Narrative: General: Patient is alert very pleasant male in no acute distress. HEENT: Pupils equal Neck: No lymphadenopathy Lungs: Clear to auscultation Heart: Regular rhythm without murmur Abdomen: Soft, nontender, no HSM Extremities: Warm, dry, no edema Neurological: Sensorium intact, no focal weakness Skin: No rash or petechiae Objective Labs Result Diagrams: 01/31/20 11:39 01/31/20 11:39 Labs: Laboratory Results - last 24 hr 01/31/20 01/31/20 01/31/20 11:39 11:39 11:39 WBC 11.5 H RBC 4.34 L Hgb 12.5 L Hct 38.3 L MCV 88.1 MCH 28.7 MCHC 32.5 RDW 13.9 Plt Count 240 Neut % (Auto) 79.3 H Lymph % (Auto) 12.1 L [place] % (Auto) 6.4 Eos % (Auto) 1.4 L Baso % (Auto) 0.8 Neut # (Auto) 9200 H Lymph # (Auto) 1400 [place] # (Auto) 700 Eos # (Auto) 200 Baso # (Auto) 100 PT 14.6 H INR 1.3 APTT 43 H Sodium 140 Potassium 5.0 Chloride 107 Carbon Dioxide 29 BUN 19 Creatinine 0.76 Estimated GFR > 60.0 BUN/Creatinine Ratio 25.0 H Glucose 103 Calcium 9.6 Assessment & Plan Assessment & Plan narrative: This is a 79-year-old male with history of BPH, paroxysmal atrial fibrillation, on Eliquis for anticoagulation who presents with recurrent urinary retention and hematuria. 1. Recurrent gross hematuria, present on admission, active -secondary to BPH, possible trauma from catheter placement, oral anticoagulation medication, less likely bladder tumor -patient with return ER visit due to bleeding and clots in his Mcdonnell catheter -admit to hospital observation for continuous bladder irrigation until urine clears up -continue holding Eliquis, last dose evening January 29, and should be out of his system 48-72 hours -consult Dr. Lynch for Urology, patient states he would like to switch outpatient urology care to Dr. Lynch 2. BPH with urinary retention, present on admission, active -continue tamsulosin 0.4 mg b.i.d. and finasteride 5 mg q.d. per home routine 3. Paroxysmal atrial fibrillation -patient currently in sinus rhythm with 1 previous episode of AFib in August 2019 while on a cruise -continue metoprolol tartrate 25 mg b.i.d. per home routine -continue holding Eliquis due to urinary bleeding Code status: Full code Surrogate decision maker: Spouse DVT prophylaxis: SCDs, Lovenox contraindicated due to bleeding
[2020-01-31] MEDS: SODIUM CHLORIDE 0.9% 1,000 ML 125 ML IV (19:18)
[2020-01-31] MEDS: HYDROMORPHONE 0.5 MG INJ IV ×2 (20:07→23:31)
--- NOTE | 2020-01-31 20:18 | PC.NURSE ---
1825 Pt arrived in room via gurney from ED, able to ambulate from gurney to bed where he was connected to monitoring equipment, A/Ox3, VSS, denies pain at this time. Bladder irrigation draining from bruce catheter, clear, light pink urine with no clots. Oriented to room, tv and call light system, admission completed, home medications reviewed. Bed low and locked, call light within reach, will continue to monitor.
[2020-01-31 20:23] LABS: COVID19 -Nasal RAPID Negative (Negative)
[2020-01-31] MEDS: TAMSULOSIN 0.4 MG CAPSULE PO (21:20)
[2020-01-31] MEDS: METOPROLOL IR 25 MG TABLET PO (21:20)
[2020-01-31] MEDS: BACLOFEN 10 MG TABLET PO (21:45)
[2020-02-01] MEDS: SODIUM CHLORIDE 0.9% 1,000 ML 125 ML IV ×2 (03:44→11:15)
[2020-02-01] MEDS: HYDROMORPHONE 0.5 MG INJ IV (03:58)
[2020-02-01 04:13] VITALS: BP 116/60; PULSE 66; RESP 17; TEMP 36.2; O2SAT 96
--- NOTE | 2020-02-01 06:42 | PC.NURSE ---
Cable Respooler Note-Continuous urinary irrigant at slow-moderate rate, urine varies from lomax to pale yellow, no clots noted, 1350ml in, 1900ml out into Mcdonnell, 550ml total True urine. Medicated with 0.5mg IV Dilaudid twice for bladder discomfort and pressure. B&O suppository available, patient declined.
[2020-02-01 07:52] VITALS: BP 106/60; PULSE 61; RESP 18; TEMP 36.6; O2SAT 96
[2020-02-01 08:00] VITALS: O2SAT 96
[2020-02-01] MEDS: FINASTERIDE 5 MG TABLET PO (08:54)
[2020-02-01] MEDS: METOPROLOL IR 25 MG TABLET PO (08:54)
[2020-02-01] MEDS: TAMSULOSIN 0.4 MG CAPSULE PO (08:54)
[2020-02-01] MEDS: BACLOFEN 10 MG TABLET PO (08:54)
--- NOTE | 2020-02-01 10:50 | CM.DANOTE ---
Addendum entered by STEFANI Ramirez 02/01/20 13:56: Per MD, pt likely to d/c home tonight with indwelling cath and follow up with Urology and no further identified discharge planning needs. Plan: SW to follow for likely pt d/c home tonight. BF Original Note: Patient is a 79 year old male who was admitted on 01/31/20 for Catheter issues. Pt has [facility] for insurance and his PCP is Dr. Dunbar. EMR was reviewed. Per MD, pt admitted for continuous bladder irrigation due to bleeding and multiple blood clots. Pt still has some blood in irrigation fluid but no sign of clots today. MD calling Dr. Lynch for Urology Consult to determine d/c with cath and recommendations. SW met bedside with pt and explained role and pt confirms that he lives on [facility] [address] with his spouse and drives and is active and independent at baseline and does not use equipment to ambulate. Pt has been established with Urologist Dr. Tobar but is planning to maybe establish with Urologist Dr. Lynch. Pt denies any hx of HH or SNF and preference is to d/c home when medically stable. Pt states he walked on to the [facility] and took [employer] taxi to the hospital and his plan is to call [employer] again to [facility] and have his [place] him [place] [facility] [place] a ride home at d/c. Plan: SW to follow after Urology Consult towards confirming safe d/c plan of home with spouse and outpt follow up when medically stable and any further identified needs. STEFANI Ramirez Discharge Planning/Care Management CM Discharge Assessment Start: 02/01/20 10:47 Freq: Status: Active Protocol: Document 02/01/20 10:48 BF (Rec: 02/01/20 10:50 BF [id number]) Discharge Planning Assessment Assigned Research Rn Spec STEFANI Molina DPOA/Assigned Designee Name spouse Sherrie Contact Information [phone] Advance Directives? No Advance Directives on File No History Provided By Patient,Medical Record Has Patient been admitted in last 30 No days? Prior Living Arrangements House Household Members spouse Type of transporation used prior to Drives own vehicle admit Comment [place] [facility] [place] spouse and is independent with ADL's at baseline and no DME for ambulation Independent with ADL's Yes Is patient alert and oriented? Yes Caregiver for Another No Barriers to Discharge No Discharge Plan Home Transportation Arrangement Likely [employer] to [place] and spouse to transport home on the other side Referrals Initiated None needed Whiteboard Updated in Patient Room with Yes name and ext. # of Research Rn Spec Review Status In Process Please Provide Date Initial DC 02/01/20 Assessment Was Performed Next Review Type Continued Stay Review
[2020-02-01 12:00] VITALS: BP 127/70; PULSE 65; RESP 16; TEMP 37; O2SAT 98
--- NOTE | 2020-02-01 12:30 | PC.NURSE ---
1200- CBI stopped per verbal order from Dr. Gar. Plan is to monitor patient over the next couple hours and probably d/c to home with indwelling catheter in place. Pt to f/u with urologist. Gave pt number to [facility] per request.
--- NOTE | 2020-02-01 16:16 | PC.NURSE ---
Patient had discharge order since before shift change. Patient was ready to go and wanted to catch 1630 ferry to [place]. IV was removed, no tele. Mcdonnell catheter was changed to leg bag and education given about keeping clean and how to prevent infection- patient states he has had the same leg bag years ago for several weeks and felt confident going home with it. Patient says he has a urology appointment with Dr. Tijerina Mar 08. I called the urology office and left a message requesting an earlier appointment if possible. Patient advised to discontinue his Eliquis as directed by Dr. Gar and states he already has the new prescription for tamsulosin on hand. Patient dressed himself and gathered his belongings, he requested to wait in waiting room downstairs for his and was taken down in a wheelchair.
== END 2020-02-01 16:18 | disposition home or self-care (01) ==
LOC: ED 11:23 → AC 17:01 → ICU 17:10
PROVIDERS: Admitting Provider Internal Medicine; Emergency Provider Emergency Medicine; PCP Internal Medicine; Visit Provider Internal Medicine
DX: T83.098A Other mechanical complication of other urinary catheter, initial encounter (principal); R31.0 Gross hematuria; R33.8 Other retention of urine; N40.1 Benign prostatic hyperplasia with lower urinary tract symptoms; I48.0 Paroxysmal atrial fibrillation; Z11.59 Encounter for screening for other viral diseases; Z79.01 Long term (current) use of anticoagulants
CPT/HCPCS: 36415; 51700; 51701; 51705; 51798; 80048; 85025; 85610; 85730; 87635; 96361; 96372; 96374; 96376; 99283; 99284; G0378; J1170

== ENCOUNTER 2020-02-02 03:47 | Emergency (ER) | payer MEDICARE, SELFPAY ==
[2020-02-01 15:20] VITALS: BMI 26.6
[2020-02-02 03:45] VITALS: BP 148/69; PULSE 77; RESP 20; TEMP 36.5; O2SAT 98; BMI 26.6
--- NOTE | 2020-02-02 03:47 | ED_ITS ---
HPI - Male Genitourinary <Jana Moncada MD - Last Filed: 02/09/20 18:08> General Chief complaint: Urogenital-Male Stated complaint: clogged cath Time Seen by Provider: 02/02/20 03:51 History of Present Illness HPI Narrative: 79-year-old gentleman presents with his 3rd episode of hematuria with clots large enough to completely obstruct his urethra as well as Mcdonnell catheter. With his initial presentation he had a 3 way catheter placed and 10 L of bladder irrigation. He was discharged home only to return a couple of hours later and was admitted to the hospital for the same thing. He spent the night in the hospital with continuous bladder irrigation and was discharged home and did well for approximately 18 hours until the catheter again clogged and he presents to the ER again for assistance. He had contacted Dr. Lynch is office and was told 1st available appointment for hospital follow-up was at the end of February. He has held his Eliquis since his initial presentation, a total of 3 doses at this time. Related Data Home Medications Medication Instructions Recorded Confirmed finasteride 5 mg PO DAILY 01/31/20 01/31/20 metoprolol succinate 25 mg PO DAILY 01/31/20 01/31/20 Previous Rx's Medication Instructions Recorded tamsulosin [Flomax] 0.4 mg PO BID 30 Days #60 cap 02/01/20 Allergies Allergy/AdvReac Type Severity Reaction Status Date / Time No Known Drug Allergies Allergy Verified 12/31/18 11:46 Review of Systems <Jana Moncada MD - Last Filed: 02/09/20 18:08> Review of Systems Narrative: Pertinent positive and negative findings as per HPI Remainder of review of systems is otherwise unremarkable for Constitutional: Fevers, chills, weakness ENT: No sore throat, neck pain, ear pain CV: Chest pain, palpitations, dyspnea on exertion Respiratory: Cough, wheeze, dyspnea MS: Muscle weakness, numbness, joint swelling or warmth Skin: Rashes, nonhealing lesions Neuro: Syncope, dizziness, tingling Patient History <Jana Moncada MD - Last Filed: 02/09/20 18:08> Medical History BPH (benign prostatic hyperplasia) (Acute) Paroxysmal atrial fibrillation (Acute) Surgical History No pertinent past surgical history (Acute) Social History household members: spouse Smoking Status: Current some day smoker Exam <Jana Moncada MD - Last Filed: 02/09/20 18:08> Narrative Exam Narrative: General: Alert appropriate in significant distress with dramatic bladder spasm. Respiratory: Able to speak in full sentences, no obvious respiratory distress Skin: No obvious rashes, warm and dry Neurologic: Grossly intact no obvious asymmetries or abnormalities Psych, appropriate insight and affect, cooperative Catheter with clots in it and not currently draining Initial Vital Signs Initial Vital Signs: Vital Signs Temperature 97.7 F 02/02/20 03:45 Pulse Rate 77 02/02/20 03:45 Respiratory Rate 20 02/02/20 03:45 Blood Pressure 148/69 H 02/02/20 03:45 Pulse Oximetry 98 02/02/20 03:45 <Jeffrey Corbin MD - Last Filed: 02/20/20 17:17> Initial Vital Signs Initial Vital Signs: Vital Signs Temperature 97.7 F 02/02/20 03:45 Pulse Rate 77 02/02/20 03:45 Respiratory Rate 20 02/02/20 03:45 Blood Pressure 148/69 H 02/02/20 03:45 Pulse Oximetry 98 02/02/20 03:45 Course <Jana Moncada MD - Last Filed: 02/09/20 18:08> Orders Ordered: ED Orders 02/02/20 04:49 CT abdomen pelvis wo con Stat Vital Signs Vital signs: Vital Signs - 8 hr 02/02/20 03:45 Temperature 97.7 F Pulse Rate 77 Respiratory Rate 20 Blood Pressure 148/69 H Pulse Oximetry 98 <Jeffrey Corbin MD - Last Filed: 02/20/20 17:17> Course Course Narrative: I saw this patient on a prior ER visit, he was admitted. Dr. Miller and I discussed the case at change of shift, knowing that I had a lot of knowledge the patient hand thinking I would be involved in his disposition. He was seen by urology and disposition was provided prior to Dr. Miller's departure at the end of her shift. I did not participate in this patient's, although in our IT-system care was transferred to me. Orders Ordered: ED Orders 02/02/20 04:49 CT abdomen pelvis wo con Stat Vital Signs Vital signs: Vital Signs - 8 hr 02/02/20 03:45 Temperature 97.7 F Pulse Rate 77 Respiratory Rate 20 Blood Pressure 148/69 H Pulse Oximetry 98 MDM - Male Genitourinary <Jana Moncada MD - Last Filed: 02/09/20 18:08> [facility] Narrative Medical decision making narrative: Recurrent presentation for hematuria with large clots and obstructive uropathy. He had an extended ER stay with home discharge followed by hospital admission and is back within 24 hours. 435am with some direct irrigation quite a bit of old clots were removed. With the 1st L and half of bladder irrigation we are actually getting clear fluid returning. Phone call to Dr. Lynch, in light of recurrent clotting Dr. Lynch asked that patient call him at the [place] office later this morning ([phone]) [phone] again has an obstruction of the catheter. With assertive irrigation more clots are returned. Bladder irrigation is now flowing nicely. 445 again discussed case with Dr. Lynch. He requested CT scan of the pelvis without contrast. He will come in and see the patient within the next 1-2 hours and help strategize disposition [address] Tijerina. Will go home with syringe to irrigate at home if necessary. Dr. Lynch will be consulting with primary care and land management forester in anticipation of scheduling open prostatectomy. If patient needs to return to the emergency room Dr. Lynch will adjust plans accordingly. Continue to remain off Eliquis. Discharge Plan Departure Patient Disposition: Admitted as Observation Clinical Impression: Gross hematuria BPH (benign prostatic hyperplasia) Qualifiers: Lower urinary tract symptom presence: symptoms present Lower urinary tract symptom detail: urinary obstruction Qualified Code(s): N40.1 - Benign prostatic hyperplasia with lower urinary tract symptoms Discharge Date/Time: 02/02/20 08:56 Instructions: DI for Benign Prostatic Hyperplasia Additional Instructions: It was nice to see you yet again. I am sorry you needed to return again. You met Dr. Lynch in the emergency department today. He will be speaking with your primary care physicians and cardiologists today in anticipation of clearing you for an open prostatectomy procedure. In the meantime, please continue to not take your Eliquis. Will send you home with syringes so that if the catheter does become clogged again you can gently irrigate yourself. I wish you the best with all of the upcoming procedures. Referrals: Robert Riley MD [Primary Care Provider] -
--- NOTE | 2020-02-02 04:49 | DI.CT.S_ITS ---
PROCEDURE: CT ABDOMEN PELVIS WO CON INDICATIONS: Hematuria, BPH TECHNIQUE: Noncontrast 5 mm thick sections acquired from the diaphragms to the symphysis. 5 mm thick coronal and sagittal reformats were then performed. For radiation dose reduction, the following was used: automated exposure control, adjustment of mA and/or kV according to patient size. COMPARISON: None. FINDINGS: Image quality: Excellent. Lung bases: There is a small right middle lobe pulmonary nodule measuring up to 4 mm. A small subpleural nodule is demonstrated in the left lingula measuring up to 5 mm. Medially in the right lower lobe, there is a 6 mm nodule along the right hemidiaphragm. A small calcified nodule is demonstrated in the right lower lobe posteriorly likely representing sequelae of old granulomatous disease. Mild dependent atelectasis is demonstrated bilaterally. There is a small left fat containing posterior diaphragmatic hernia. Heart size is normal. Urinary system: The kidneys demonstrate no renal stones or hydronephrosis. There is mild nonspecific perinephric stranding bilaterally. No perinephric fluid collections. The ureters are nondistended along their course bilaterally. A Mcdonnell catheter is present within a partially distended urinary bladder. There is concentric bladder wall thickening with perivesicular fat stranding suggestive of a cystitis. Small foci of gas are demonstrated within the bladder which may represent sequelae of catheterization or infection from a gas-forming organism. The prostate is heterogeneous and enlarged. Other solid organs: Scattered small foci of calcifications are demonstrated throughout the liver and spleen consistent with sequelae of old granulomas disease. Multiple gallstones are demonstrated in the gallbladder without definite wall thickening or pericholecystic fluid. Pancreas is normal in contours without peripancreatic fat stranding or fluid collections. Spleen is normal in size. No adrenal nodules. Peritoneum and bowel: Unenhanced bowel loops demonstrate normal wall thickness and caliber. There is colonic diverticulosis without acute diverticulitis. No free fluid or air. Nodes and vessels: No retroperitoneal or mesenteric adenopathy by size criteria. Aorta and inferior vena cava are normal in caliber. Abdominal wall: No ventral hernias. There is a right paracentral subcutaneous fluid collection in the ventral abdominal wall extending to the skin. This measures up to 2.7 x 1.6 cm and is suggestive of a sebaceous cyst. Pelvis: No free pelvic fluid. No inguinal hernias or adenopathy. Bones: No suspicious bony lesions. No vertebral body compression fractures. IMPRESSION: 1. No evidence of nephrolithiasis or hydronephrosis. 2. Concentric bladder wall thickening with perivesicular fat stranding suggestive of a cystitis. There is partial distention of the bladder with a Mcdonnell catheter in place. Recommend correlation with urinalysis. 3. Mild nonspecific perinephric stranding bilaterally. Evaluation for pyelonephritis is limited in the absence of intravenous contrast. Recommend correlation clinically. No perinephric fluid collections to suggest an abscess. 4. Heterogeneous enlargement of the prostate. 5. Multiple small pulmonary nodules within the visualized lung bases. The findings are indeterminate. A follow-up chest CT is recommended in 12 months to demonstrate stability if clinically indicated. Dictated by: Vadim Briscoe M.D. on 02/02/2020 at 9:30 Approved by: Vadim Briscoe M.D. on 02/02/2020 at 9:42
[2020-02-02 07:30] VITALS: BP 144/67; PULSE 70; O2SAT 96
--- NOTE | 2020-02-02 07:47 | P.CONS_ITS ---
History of Present Illness Consult details Date Patient Seen: 02/02/20 Time Patient Seen: 07:47 Chief complaint: clogged cath Reason for consult: Clot retention Requesting provider: Jana Moncada Narrative: Pernell is a 79-year-old white male who presented to [facility] ED last night with complaint catheter dysfunction. He and his recently relocated permanently to the area. Several weeks ago they were traveling abroad when he experienced urinary retention. He saw a urologist at [facility] in [facility]. He underwent cystoscopy and was told he had a very large prostate would need surgery. Upon his return to [place], he was referred to another urologist. He was instructed to perform CIC and was referred out of area for evaluation for possible urolift procedure. Unfortunately, he had been on Eliquis, and began having gross hematuria and clot formation on 01/30/20. He was admitted at [facility] and had clot evacuation and 3 way irrigation. He was discharged yesterday with referral to [facility] for definitive evaluation and management. However, sometime in the early evening yesterday the catheter once again clogged. It is now running clear on minimal to no inflow volume. CT of pelvis without contrast obtained earlier this day demonstrates a prostate measuring approximately 180 cc without residual clot within the bladder lumen proper. He was prescribed Eliquis while traveling abroad as well. He is uncertain of the indications. He has not had a formal cardiac evaluation. Eliquis was discontinued on his admission on 01/30/2020, but he had taken his dose for that day. So, effectively he has only been off Eliquis for 2 doses. He denies known history of familial prostate cancer. Meds Home Medications and Allergies Home Medications Medication Instructions Recorded Confirmed Type finasteride 5 mg PO DAILY 01/31/20 01/31/20 History metoprolol succinate 25 mg PO DAILY 01/31/20 01/31/20 History tamsulosin [Flomax] 0.4 mg PO BID 30 Days #60 cap 02/01/20 Rx Allergies Allergy/AdvReac Type Severity Reaction Status Date / Time No Known Drug Allergies Allergy Verified 12/31/18 11:46 Review of Systems Review of Systems ROS: Yes All systems reviewed with the patient and are negative except as otherwise documented Exam Vital Signs (past 8 hours): - 02/02/20 03:45 Temperature 97.7 F Pulse Rate 77 Respiratory Rate 20 Blood Pressure 148/69 H Pulse Oximetry 98 Oxygen Delivery Method Room Air Narrative Exam Narrative: He is a well-developed, thin elderly white male who was awake, alert, and in no acute distress. Chest-unlabored, clear and equal bilaterally. Cor-regular rate and rhythm. No clicks rubs or murmurs appreciated. Abdomen-soft, nondistended, nontender. Genitalia-normal appearing adult male with indwelling Mcdonnell and clear outflow. Extremity-no cyanosis, clubbing, or edema. Objective ECG Impression: 79-year-old male with markedly enlarged prostate, urinary retention, and gross hematuria and clot formation secondary to to CIC trauma while on anticoagulant therapy with Eliquis. Assessment & Plan Assessment & Plan narrative: Assessment: 1. Urinary retention. 2. Bladder outlet obstruction secondary to a markedly enlarged prostate. 3. Historical use of Eliquis for unclear indications. No history of formal cardiac evaluation to clarify indications for continued use. Plan: 1. May discharge patient home today with irrigation supplies. 2. Rest as much as possible and drink ample free water. 3. Begin efforts to obtain an expedited cardiac evaluation and clearance for simple open prostatectomy. Reviewed findings and explained impression and options. Explained normal verses his prostate volume. Discussed interventional options. Explained the indications and rationale for simple open prostatectomy given the patrick id enlargement of the prostate and urinary retention. Discussed perioperative expectations and postop recovery for simple open prostatectomy. He is anxious to proceed with definitive therapy. Explained common side effects, possible complications, perioperative limitations/restrictions, and reasonable expectations of recovery and outcomes following simple open prostatectomy.
[2020-02-02 08:30] VITALS: BP 142/69; PULSE 75; O2SAT 97
--- NOTE | 2020-02-02 18:53 | P.DS_ITS ---
History of Present Illness History of Present Illness Date Patient Seen: 02/01/20 Chief complaint: clogged cath Narrative: Patient is a 79-year-old male with history of BPH, paroxysmal atrial fibrillation who presented back to the emergency department due to urinary bleeding and retention. Patient was seen in the ER initially on January 07 with a 3rd episode of urinary retention. A Mcdonnell catheter was placed with 800 cc urine output. He was sent home with Mcdonnell catheter and instructions to increase tamsulosin dose to 2 capsules daily. He saw his urologist Dr. Tobar about 1 week later and had catheter removed. Subsequently he was doing as needed self catheterization. On January 30 shortly after midnight patient presented back to the ER with complaints of bladder pain and lanie blood in the urine. Mcdonnell catheter was placed with 300 cc fluid noted to be large amount of blood and clot s. He had 3 way Mcdonnell placed with about 9 L NS bladder irrigation overnight in the ER until urine cleared up and he was able to go home. However, he return to the ER just several hours later due to bleeding from his penis around the catheter and blood clots in the catheter tubing causing urinary retention. He has been getting additional bladder irrigation with during collar improving but continued passage of clots. He is now being admitted for hospital overnight observation to continue bladder irrigation. Of note, patient has been taking Eliquis for episode of paroxysmal AFib while on a cruise in [facility]. He states he has not had any more episodes of atrial fibrillation since then. His last dose of Eliquis was evening of January 29, about 24 hours ago. He denies any fevers, chills, nausea, vomiting, chest pain, palpitations or dyspnea. Current labs show WBC 11.5 with 79% neutrophils, hemoglobin 12.5, platelets 240, sodium 140, potassium 5.0, creatinine 0.76. His PSA on 12/04/2019 was 6.3. He does not have any history of bladder or prostate surgeries. Discharge Providers Provider Discharge Date: 02/01/20 Primary care physician: Robert Riley MD Discharge provider: Trisha Gar MD Summary Hospital Course Discharge Diagnosis: 1. Urinary retention 2. Hematuria 3. Paroxysmal atrial fibrillation previously on Eliquis 4. Hypertension Hospital Course: Patient was admitted to the hospital for an acute episode of hematuria/urinary retention. He was passing significant clots in the emergency room. Three way Mcdonnell catheter was placed for bladder irrigation. The patient's Eliquis was discontinued. He continued on his finasteride and terazosin. The patient had resolution of clots. His urine was somewhat bloody but not passing clots. He was switched to a leg bag. Arrangements were made for the patient to be discharged home and he was sent home. The patient was referred to Dr. Lynch his office for outpatient urological evaluation. Patient felt significantly improved was agreeable and discharged home accordingly Status at Discharge Cognitive/behavioral status at discharge: oriented Functional status at discharge: independent ambulation Overall status at discharge: patient is back to baseline Time Spent with Patient Time spent: Less than 30 minutes Exam Vital Signs (past 8 hours): Oxygen Delivery Method Room Air Narrative Exam Narrative: Pleasant elderly male in no acute distress Lungs: Clear to auscultation Cardiac exam: Regular rate and rhythm normal S1-S2 with a 2/6 systolic ejection murmur Abdomen: Soft nontender nondistended Extremities: No edema Discharge Assessment & Plan Assessment and Plan Assessment: 1. Urinary retention, acute, present on admission 2. Hematuria 3. Hypertension 4. Paroxysmal atrial fibrillation Plan of Treatment: Discharge home with Mcdonnell catheter Follow-up with Dr. Lynch Continue to hold Eliquis until seen by PCP and or urology Discharge Plan Departure Patient Disposition: Home Clinical Impression: BPH (benign prostatic hyperplasia), Gross hematuria Discharge Date/Time: 02/02/20 08:56 Instructions: DI for Benign Prostatic Hyperplasia Activity Restrictions/Additional Instructions: It was nice to see you yet again. I am sorry you needed to return again. You met Dr. Lynch in the emergency department today. He will be speaking with your primary care physicians and cardiologists today in anticipation of clearing you for an open prostatectomy procedure. In the meantime, please continue to not take your Eliquis. Will send you home with syringes so that if the catheter does become clogged again you can gently irrigate yourself. I wish you the best with all of the upcoming procedures. Prescriptions: No Action finasteride 5 mg Tablet 5 mg PO DAILY RF: 0 metoprolol succinate 25 mg Tablet Extended Release 24 Hr 25 mg PO DAILY RF: 0 tamsulosin [Flomax] 0.4 mg Capsule 0.4 mg PO BID 30 Days Qty: 60 RF: 0 Referrals: Robert Riley MD [Primary Care Provider] -
== END 2020-02-02 08:56 | disposition admitted as inpatient to this hospital (09) ==
PROVIDERS: Emergency Provider Emergency Medicine; PCP Internal Medicine
DX: R31.0 Gross hematuria (principal); N40.0 Benign prostatic hyperplasia without lower urinary tract symptoms
CPT/HCPCS: 51700; 74176; 99284

== ENCOUNTER → 2020-03-11 09:57 | Outpatient (CLI) | payer MEDICARE, SELFPAY ==
[2020-02-01 15:20] VITALS: BMI 26.6
--- NOTE | 2020-03-11 10:01 | DI.MRI.S_ITS ---
PROCEDURE: MR PELIS WO/W CON INDICATIONS: Nodular prostate without lower urinary tract sympt TECHNIQUE: Coronal HASTE, axial T1 FSE with fat saturation, 3-plane nonbreath-hold T2 FSE. After the administration of contrast, dynamic axial, delayed axial and coronal VIBE or 2-D FLASH with fat saturation through the pelvis. Optional diffusion weighted imaging and ADC may be performed. COMPARISON: None. FINDINGS: Image quality: Diffusion weighted and dynamic contrast enhanced images are diagnostic. Prostate: Gland size is 4.6 cm AP, 5.5 cm transverse and 5.4 cm craniocaudad, net ellipsoid gland volume 77.2 mL. Lesion size(s): No discrete malignant-appearing prostate lesion is found. T2 weighted imaging (T2WI) morphology score: The peripheral zone shows uniform hyp 3rd or intense signal a, expected finding. The transitional zone shows circumscribed hypointense or heterogeneous encapsulated nodules consistent with benign prosthetic hypertrophy. Diffusion weighted imaging (DWI) morphology score: No hypointense diffusion-weighted lesion is identified, within the peripheral or transitional zones. Dynamic contrast enhancement (DCE): No area of abnormal early hyperenhancement is found, and there is expected heterogeneity contrast enhancement associated benign prosthetic hypertrophy pattern. Lesion PI-RADS score: Overall PI-RADS score is 0-1, very low to low probability of clinically significant prostate carcinoma at this time in this patient. Genitourinary system: Bladder wall thickness is normal. Distal ureters are non distended. Bowel and peritoneum: No pathologic free pelvic fluid. Inferior colon and small bowel loops are normal in caliber. Nodes and vessels: No pelvic or inguinal adenopathy by size criteria. Iliac vessels are normal in caliber. Soft tissues: No inguinal hernias. Note is made of sigmoid colon diverticulosis with mild increased enhancement along the posterior lower sigmoid colon just above the peritoneal reflection at the posterior midline. Bones: Marrow demonstrates normal overall signal, without lesions to suggest metastases. IMPRESSION: Very low to low probability of clinically significant prostate carcinoma in this patient, however there is a pattern of benign prosthetic hypertrophy with multiple transitional zone prostate nodules as a result. No evidence of adjacent marrow space lesion included in the field of view, no sign of adenopathy throughout the visualized pelvis. Moderate diverticulosis, with mild increased enhancement in the immediate adjacent colon and pericolonic soft tissues at the posterior midline peritoneal reflection area. Mild chronic diverticulitis may be present. No free fluid or evidence of peridiverticular abscess is found. Dictated by: Omari Tavares M.D. on 03/11/2020 at 14:31 Approved by: Omari Tavares M.D. on 03/11/2020 at 14:55
== END ==
PROVIDERS: PCP Internal Medicine; Referring Provider Urology; Visit Provider Urology
DX: R31.0 Gross hematuria (principal); N40.2 Nodular prostate without lower urinary tract symptoms; K57.30 Diverticulosis of large intestine without perforation or abscess without bleeding
CPT/HCPCS: 72197; A9579

== ENCOUNTER → 2021-03-27 07:55 | Outpatient (CLI) | payer MEDICARE, SELFPAY ==
[2020-02-01 15:20] VITALS: BMI 26.6
--- NOTE | 2021-03-27 07:57 | DI.US.S_ITS ---
PROCEDURE: US ABD AORTA ANEURYSM SCREEN INDICATIONS: ABDOMINAL AORTIC ECTASIA TECHNIQUE: Real time scanning was performed of the aorta and iliac arteries, with image documentation. COMPARISON: [facility], CT, CT ABDOMEN PELVIS WO CON, 02/02/2020, 4:47. FINDINGS: Aorta: Proximal aortic diameter measures 2.7 cm. Mid-aorta measures 2 cm. Distal aortic diameter is 1.8 cm. Iliac arteries: Right common iliac artery measures 1.4 cm. Left common iliac artery measures 1.1 cm. IMPRESSION: Negative for aneurysm. Dictated by: Miguel Linn M.D. on 03/27/2021 at 9:06 Approved by: Migeul Linn M.D. on 03/27/2021 at 9:07
--- NOTE | 2021-03-27 07:57 | DI.ECHO.S_ITS ---
[place] [facility]---------+ [facility] +---------+ : : [address] : : : : [id number] : : : : Phone: [phone] Echocardiogram Report + + :Name: CHAD MATTA Study Date: 03/27/2021 Height: 67 in : :[facility] ReadingLocation: Weight: 165 lb : : Gender: Male BSA: 1.9 m2 : :: 1940 Age: 80 yrs BP: 136/86 mmHg: :Reason For Study: ABDOMINAL AORTIC ECTASIA : :Ordering Physician: VALERIE, : :MARBELLA Performed By: Latonia Moyer : :Referring: MARBELLA PADILLA : + + Interpretation Summary The ejection fraction is estimated to be 60-65%. Diastolic parameters suggest probable normal left ventricular diastolic function and normal filling pressures. The right ventricle is mildly dilated. The right ventricular systolic function is normal. There is mild mitral regurgitation. There is mild tricuspid regurgitation. Normal PASP. Procedure: A two-dimensional transthoracic echocardiogram with color flow and Doppler was performed. The study quality was technically adequate. There is no prior echocardiogram noted for this patient. The patient was in sinus bradycardia with heart rates between 53-60 bpm during the exam. Left Ventricle: The left ventricle is normal in size and wall thickness. The ejection fraction is estimated to be 60-65%. Diastolic parameters suggest probable normal left ventricular diastolic function and normal filling pressures. Right Ventricle: The right ventricle is mildly dilated. The right ventricular systolic function is normal. Atria: The left atrial size is normal. The right atrium is mildly dilated. There is no Doppler evidence for an interatrial shunt. Mitral Valve: The mitral valve leaflets appear mildly thickened, but open well. There is mild mitral annular calcification. There is mild mitral regurgitation. Aortic Valve: The aortic valve is mildly calcified. The aortic valve is trileaflet. There is no aortic valve stenosis. No aortic regurgitation is present. Tricuspid Valve: The tricuspid valve is normal in structure and function. There is mild tricuspid regurgitation. The right ventricular systolic pressure is estimated to be at least 27-32 mmHg based on an estimated right atrial pressure of 3 mm Hg. Pulmonic Valve: The pulmonic valve leaflets are thin and pliable; valve motion is normal. There is trace pulmonic regurgitation. Great Vessels: The aortic root is normal size. The dimensions of the ascending aorta are normal. The IVC is of normal diameter and collapses greater than 50% with a sniff. This suggests a low right atrial pressure of 3 mm Hg. Pericardium/ Pleura There is no pericardial effusion. There is no pleural effusion. MMode/2D Measurements & Calculations LVIDd: 4.3 cm LVOT diam: 2.0 cm LVIDs: 2.9 cm Ao root diam: 3.4 cm FS: 33.7 % asc Aorta Diam: 3.2 cm IVSd: 0.93 cm Ao Arch Diam (Prox Trans): 2.7 cm LVPWd: 0.86 cm LV young. diameter/BSA (cm/m^2): 2.3 LV sys. diameter/BSA (cm/m^2): 1.5 LA A2 area: 14.4 cm2 RA long axis: 5.0 cm LA A4 area: 14.9 cm2 RA area: 15.6 cm2 LA length (vol): 5.1 cm RA vol: 40.9 ml LA vol: 35.8 ml RA : 22.0 ml/m2 LA vol index: 19.2 ml/m2 IVC diam: 0.84 cm RVD1 (basal): 2.9 cm TAPSE: 1.9 cm Doppler Measurements & Calculations Ao V2 max: 99.8 cm/sec LVOT Max Anibal: 67.8 cm/sec Ao V2 mean: 69.7 cm/sec LV V1 max P.8 mmHg Ao max P.0 mmHg LV V1 VTI: 16.7 cm Ao mean P.2 mmHg RIAN(I,D): 2.3 cm2 Ao V2 VTI: 23.3 cm RIAN(V,D): 2.2 cm2 sev ratio: 0.71 RIAN indexed to BSA (cm^2/m^2): 1.2 MV E max anibal: 53.5 cm/sec TR max anibal: 245.2 cm/sec MV A max anibal: 64.1 cm/sec TR max P.1 mmHg MV E/A: 0.84 PA V2 max: 68.2 cm/sec Med Peak E' Anibal: 7.8 cm/sec PA V2 mean: 45.2 cm/sec E/E' med: 6.9 PA mean P.95 mmHg Lat Peak E' Anibal: 6.8 cm/sec PA pr(Accel): 29.3 mmHg E/E' lat: 7.9 E/e' average: 7.4 MV dec time: 0.25 sec SV(LVOT): 53.6 ml Reading Physician:01:26 PM
== END ==
PROVIDERS: PCP Internal Medicine; Referring Provider Internal Medicine Cardiovascular Disease; Visit Provider Internal Medicine Cardiovascular Disease
DX: I08.1 Rheumatic disorders of both mitral and tricuspid valves (principal); I77.811 Abdominal aortic ectasia
CPT/HCPCS: 76706; 93306

== ENCOUNTER → 2022-01-04 09:57 | Outpatient (CLI) | payer MEDICARE, SELFPAY ==
[2020-02-01 15:20] VITALS: BMI 26.6
--- NOTE | 2022-01-04 09:59 | DI.RAD.S_ITS ---
PROCEDURE: XR CHEST 2V INDICATIONS: orthopnea TECHNIQUE: 2 views of the chest were acquired. COMPARISON: [facility], CR, XR CHEST 2V, 05/12/2019, 14:37. FINDINGS: Surgical changes and devices: None. Lungs and pleura: Lungs are clear. No pleural effusions or pneumothorax. Small calcified granuloma in the periphery of the right lung base is stable. Mediastinum: Mediastinal contours are normal. Heart size is normal. Bones and chest wall: No suspicious bony abnormalities. Soft tissues appear unremarkable. IMPRESSION: No acute cardiopulmonary disease process. Dictated by: Darline Christopher MD, PhD on 01/04/2022 at 10:13 Approved by: Darline Christopher MD, PhD on 01/04/2022 at 10:15
== END ==
PROVIDERS: PCP Internal Medicine; Referring Provider Physician Assistant; Visit Provider Physician Assistant
DX: R06.01 Orthopnea (principal)
CPT/HCPCS: 71046

== ENCOUNTER → 2022-01-29 10:24 | Outpatient (CLI) | payer MEDICARE, SELFPAY ==
[2020-02-01 15:20] VITALS: BMI 26.6
--- NOTE | 2022-01-29 10:58 | DI.RAD.S_ITS ---
PROCEDURE: XR HAND LT MIN 3V INDICATIONS: bilateral hand pain TECHNIQUE: 3 views of the hand(s) acquired. COMPARISON: [facility], CR, XR HAND RT MIN 3V, 01/29/2022, 11:13. FINDINGS: Bones: No fractures or dislocations. [id number] osteoarthritic changes are noted throughout left hand and wrist joints particularly along radial aspect with joint space narrowing, subchondral sclerosis and cystic changes. Subtle radiolucencies over radial aspect of 4th MCP joint is seen, early erosive changes cannot be excluded. Carpal bones are normally aligned. No suspicious bony lesions. Soft tissues: No suspicious soft tissue calcifications. 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 Subtle radiolucencies involving 4th MCP joint concerning for early erosion secondary to inflammatory arthropathy. Dictated by: Anupam Lucero M.D. on 01/29/2022 at 12:52 Approved by: Anupam Lucero M.D. on 01/29/2022 at 13:11
--- NOTE | 2022-01-29 10:58 | DI.RAD.S_ITS ---
PROCEDURE: XR HAND RT MIN 3V INDICATIONS: bilateral hand pain TECHNIQUE: 3 views of the hand(s) acquired. COMPARISON: None. FINDINGS: Bones: No fractures or dislocations. Carpal bones are normally aligned. Osteoarthritic changes are noted in right hand and wrist with joint space narrowing and subchondral sclerosis. No obvious bony erosive changes. No suspicious bony lesions. Soft tissues: No suspicious soft tissue calcifications. IMPRESSION: Right hand and wrist joint osteoarthritis. No fracture or dislocation. No definite bony erosive changes. Dictated by: Anupam Lucero M.D. on 01/29/2022 at 12:51 Approved by: Anupam Lucero M.D. on 01/29/2022 at 12:52
== END ==
PROVIDERS: PCP Internal Medicine; Referring Provider Internal Medicine; Visit Provider Internal Medicine
DX: M19.041 Primary osteoarthritis, right hand (principal); M79.641 Pain in right hand; M79.642 Pain in left hand
CPT/HCPCS: 73130

== ENCOUNTER → 2023-03-14 10:47 | Outpatient (CLI) | payer OTHER, SELFPAY ==
[2020-02-01 15:20] VITALS: BMI 26.6
--- NOTE | 2023-03-14 10:50 | DI.CT.S_ITS ---
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 Coronal and sagittal reformats were performed. For radiation dose reduction, the following was used: automated exposure control, adjustment of mA and/or kV according to patient size. COMPARISON: [facility], CT, CT ABDOMEN PELVIS WO CON, 02/02/2020, 4:47. FINDINGS: Image quality: Excellent. CHEST: Lower Neck: No enlarged lymph nodes. Thyroid: Within normal limits. Axillae: No enlarged lymph nodes. Chest Wall: Unremarkable. Lungs and Airways: A few small pulmonary nodules which are unchanged compared to 02/02/2020 suggesting a benign etiology. For example: -Right middle lobe 0.4 cm, (5/166). -Right lung base 0.4 cm, (5/232). -Left lung base 0.5 cm, (5/216). This could represent distal mucus airway plugging. Bibasilar atelectasis. Minimal opacity in the left upper lobe. Central airways are clear. Pleura: No pneumothorax or pleural effusions. Heart: Heart size is normal. No pericardial effusion. Thoracic Vessels: The aorta and pulmonary arteries demonstrate normal size. No central pulmonary embolism. Mediastinum and Stacia: No enlarged lymph nodes. Calcified subcarinal and right hilar lymph nodes. Esophagus: No wall thickening. No hiatal hernia. ABDOMEN: Liver: No focal lesion. Gallbladder: Absent. Biliary ducts: Unremarkable. Pancreas: Enhances uniformly. Somewhat atrophic. Spleen: No splenomegaly. Adrenal Glands: No nodule. Kidneys and Ureters: No hydronephrosis. No solid renal mass. A few hypodensities which are too small to further characterize. Stomach and Bowel: Stomach, small bowel loops, and colon are unremarkable. Diverticulosis. Normal appendix. Peritoneum: No abnormal intraperitoneal fluid. No free air. Ventral Wall: Small fat containing umbilical hernia. Right paramedian abdomen subcutaneous cyst measuring 3.1 cm, (2), previously 2.8 cm in 2019. Circumscribed smooth margin. Abdominal Nodes: No retroperitoneal or mesenteric adenopathy by size criteria. Vessels: Aorta and inferior vena cava are normal in size. PELVIS: Pelvic Organs: Prostatomegaly. Bladder: Calcifications at the base of the bladder. Pelvic Nodes: No enlarged lymph nodes. Miscellaneous: No inguinal hernias are seen. Bones: No suspicious lesion. Multilevel Schmorl's nodes and DDD. IMPRESSION: 1. No metastatic disease identified. No adenopathy. 2. Right ventral abdominal wall subcutaneous cyst measuring 3.1 cm. This is a slightly increased in size compared to 2020. This has the appearance of a sebaceous cyst. 3. Small calcifications at the base of the bladder. Indeterminate clinical significance. Prostatomegaly. Dictated by: Brant Byrnes M.D. on 03/14/2023 at 13:53 Approved by: Brant Byrnes M.D. on 03/14/2023 at 14:08
[2023-03-14 11:23] LABS: BUN Creatinine Ratio 25.3 (6-22); Blood Urea Nitrogen 19 mg/dL (9-20); Estimated Glomerular Filt Rate > 60 mL/min (>60)
== END ==
PROVIDERS: PCP Internal Medicine; Referring Provider Surgery; Visit Provider Surgery
DX: C80.1 Malignant (primary) neoplasm, unspecified (principal); R91.8 Other nonspecific abnormal finding of lung field; K42.9 Umbilical hernia without obstruction or gangrene; L72.8 Other follicular cysts of the skin and subcutaneous tissue; N40.0 Benign prostatic hyperplasia without lower urinary tract symptoms
CPT/HCPCS: 36415; 71260; 74177; 82565; 84520; Q9967

== ENCOUNTER → 2023-03-31 09:00 | Outpatient (CLI) | payer OTHER, SELFPAY ==
[2020-02-01 15:20] VITALS: BMI 26.6
--- NOTE | 2023-03-31 09:03 | DI.MRI.S_ITS ---
PROCEDURE: MR CHEST WO CON INDICATIONS: Sarcoma of back TECHNIQUE: Noncontrast axial T1 spin echo and T2 fast spin echo with fat saturation; coronal T1 spin echo and STIR; and sagittal T2 fast spin echo with fat saturation through the right upper back. COMPARISON: [facility], CT, CT CHEST ABD PEL W CON, 03/14/2023, 11:42. FINDINGS: Image quality: Excellent. Soft tissues: Skin markers are seen at the posterior right upper back. Postsurgical changes are seen with linear [id number] surgical wound in the skin with adjacent subcutaneous edema. No nodular masslike signal is seen. The adjacent portion of the trapezius and paraspinal musculature appear normal. Additional osseous structures are unremarkable. No supraclavicular or axillary lymphadenopathy. Bones: Nearby osseous structures demonstrate normal overall marrow signal. IMPRESSION: Postsurgical changes are seen involving the skin and subcutaneous tissues of the right upper back. No residual bulky nodular mass is seen. The adjacent musculature and osseous structures appear normal. Approved by: Robert Davila M.D. on 04/01/2023 at 13:02
== END ==
PROVIDERS: PCP Physician Assistant
DX: C49.6 Malignant neoplasm of connective and soft tissue of trunk, unspecified (principal)
CPT/HCPCS: 71550

== ENCOUNTER → 2023-07-02 10:39 | Outpatient (CLI) | payer OTHER, SELFPAY ==
[2020-02-01 15:20] VITALS: BMI 26.6
--- NOTE | 2023-07-02 10:40 | DI.CT.S_ITS ---
PROCEDURE: CT CHEST WO CON INDICATIONS: sarcoma of back TECHNIQUE: Noncontrast 5 mm thick sections acquired from the pulmonary apices to the posterior costophrenic angles. 1 mm lung window, 5 mm thick coronal and sagittal and 7 mm axial MIP reformats were then acquired. For radiation dose reduction, the following was used: automated exposure control, adjustment of mA and/or kV according to patient size. COMPARISON: [facility], MR, MR CHEST WO CON, 03/31/2023, 9:32. [facility], MR, MR CHEST WO/W CON, 07/02/2023, 11:14. [facility], CT, CT CHEST ABD PEL W CON, 03/14/2023, 11:42. FINDINGS: Image quality: Good Lungs and pleura: In the left upper lobe, there is an increased opacity measuring about 1.1 x 1.0 cm. Small centrilobular nodules are seen at the periphery of the left upper lobe. This is increased. No pleural effusions. Scattered scarring and atelectasis. Overall similar right lower lobe cystic change. More focal subpleural nodularity is seen at the right lower lobe periphery, with calcification, representing a benign granuloma. Other small nodules do not appear changed. Mediastinum, heart, and esophagus: No hiatal hernia. Annular and coronary calcifications. Granulomatous calcified lymph nodes are again seen. No pathologic lymph nodes by size criteria. Chest wall and thyroid: No actionable thyroid nodule identified. Chest wall findings are better seen on same day MRI. Upper abdomen: No gross abnormality on these noncontrast images of the upper abdomen, which is only partially visualized. Granulomatous calcifications are seen in the liver and spleen. Cholecystectomy clips. Bones: Degenerative changes. No acute or suspicious osseous finding. IMPRESSION: Increased opacity in the left upper lobe () measuring up to 1.1 cm, with surrounding peripheral centrilobular nodules. This may represent a focus of infection/inflammation, however early metastatic disease is a consideration given malignancy history. Consider short interval follow-up with CT or PET-CT. MRI findings are separately dictated. Other findings as above Dictated by: Abdiel Ge M.D. on 07/02/2023 at 15:21 Approved by: Abdiel Ge M.D. on 07/02/2023 at 15:27
--- NOTE | 2023-07-02 10:41 | DI.MRI.S_ITS ---
PROCEDURE: MR CHEST WO/W CON INDICATIONS: sarcoma of back TECHNIQUE: Noncontrast coronal T1 spin echo and STIR, sagittal T1 spin echo with fat saturation and STIR, axial T1 spin echo and T2 fast spin echo with fat saturation. After the administration of contrast, axial/sagittal/coronal T1 spin echo with fat saturation through the right back . COMPARISON: [facility], CT, CT CHEST ABD PEL W CON, 03/14/2023, 11:42. [facility], MR, MR CHEST WO CON, 03/31/2023, 9:32. FINDINGS: Image quality: Good Bones: There are degenerative changes of the spine. No suspicious enhancing osseous finding. Soft tissues: The lungs are not well evaluated on this study. No basal effusions. Suspected basal scarring and atelectasis are present. Right back subcutaneous scarring/fat stranding between the 2 markers at site of prior malignancy resection, without nodular enhancement at this site. However, in the right lower neck posterior subcutaneous tissues, there is a rim enhancing lesion with T2 signal hyperintensity and possible central fat measuring up to 2.4 centimeters (05/05). This was probably present on prior study in March, but partially out of the field of view. IMPRESSION: No evidence of locally recurrent disease at the surgical site between the 2 markers placed on today's MRI. Right posterior lower neck rim enhancing T2 hyperintense lesion. This was probably present, but only partially visualized on prior MRI of the chest from 03/31/2023. In addition to recurrent or metastatic malignancy, differential includes fat necrosis, given possible central fat content. Correlate with any symptoms and recommend close follow-up imaging versus sampling. Dictated by: Abdiel Ge M.D. on 07/02/2023 at 13:05 Approved by: Abdiel Ge M.D. on 07/02/2023 at 13:13
== END ==
PROVIDERS: PCP Physician Assistant; Referring Provider Orthopaedic Surgery; Visit Provider Orthopaedic Surgery
DX: C49.6 Malignant neoplasm of connective and soft tissue of trunk, unspecified (principal)
CPT/HCPCS: 71250; 71552

== ENCOUNTER → 2023-12-17 16:12 | Outpatient (CLI) | payer MEDICARE, SELFPAY ==
[2020-02-01 15:20] VITALS: BMI 26.6
[2023-12-17 17:03] LABS: Hematocrit 41.1 % (41-53); Hemoglobin 13.8 g/dL (13.5-17.5); Mean Corpuscular HGB Conc 33.5 % (30-36); Mean Corpuscular Hemoglobin 28.3 PG (26-34); Mean Corpuscular Volume 84.6 fL (80-100); Platelet Count 266 X10^3/uL (150-400); Red Blood Cell Count 4.86 X10^6/uL (4.5-5.9); Red Cell Distribution Width 14.8 % (11.6-14.8); White Blood Cell Count 8.5 X10^3/uL (4.5-11.0)
[2023-12-17 17:28] LABS: HEMOLYSIS < 15 (0-50); Iron 79 ug/dL (49-181)
[2023-12-17 17:29] LABS: BUN Creatinine Ratio 22.9 (6-22); Blood Urea Nitrogen 19 mg/dL (9-20); Calcium 9.3 mg/dL (8.4-10.2); Carbon Dioxide 29 mmol/L (22-32); Chloride 110 mmol/L (98-107); Estimated Glomerular Filt Rate > 60 mL/min (>60); Glucose 73 mg/dL (80-110); HEMOLYSIS < 15 (0-50); Potassium 5.2 mmol/L (3.4-5.1); Sodium 141 mmol/L (137-145)
[2023-12-17 17:38] LABS: Percent Iron Saturation 24 % (20-50); Total Iron Binding Capacity 332 ug/dL (261-462); Transferrin 268 mg/dL (206-381)
[2023-12-17 17:59] LABS: TSH w/ Reflex to FT4 0.95 uIU/mL (0.47-4.68)
[2023-12-17 18:02] LABS: Ferritin 20 ng/mL (18-464)
== END ==
PROVIDERS: PCP Family Medicine; Referring Provider Family Medicine; Visit Provider Family Medicine
DX: I48.0 Paroxysmal atrial fibrillation (principal); R53.83 Other fatigue; R41.89 Other symptoms and signs involving cognitive functions and awareness; R46.89 Other symptoms and signs involving appearance and behavior
CPT/HCPCS: 36415; 80048; 82728; 83540; 83550; 84443; 85027

== ENCOUNTER → 2023-12-30 11:12 | Outpatient (CLI) | payer MEDICARE, SELFPAY ==
[2020-02-01 15:20] VITALS: BMI 26.6
[2023-12-30 12:34] LABS: BUN Creatinine Ratio 22.7 (6-22); Blood Urea Nitrogen 20 mg/dL (9-20); Calcium 9.2 mg/dL (8.4-10.2); Carbon Dioxide 28 mmol/L (22-32); Chloride 110 mmol/L (98-107); Estimated Glomerular Filt Rate > 60 mL/min (>60); Glucose 84 mg/dL (80-110); HEMOLYSIS < 15 (0-50); Potassium 4.5 mmol/L (3.4-5.1); Sodium 142 mmol/L (137-145)
== END ==
PROVIDERS: PCP Family Medicine; Referring Provider Family Medicine; Visit Provider Family Medicine
DX: E87.5 Hyperkalemia (principal)
CPT/HCPCS: 36415; 80048

== ENCOUNTER → 2024-01-23 13:30 | Outpatient (CLI) | payer MEDICARE, SELFPAY ==
[2020-02-01 15:20] VITALS: BMI 26.6
--- NOTE | 2024-01-23 13:31 | DI.ECHO.S_ITS ---
[place] +---------+ Hospital : : [address] : : [place] : : [id number] : : Phone: [phone] Echocardiogram Report + + :Name: CHAD MATTA Study Date: 01/23/2024 Height: 67 in : :[facility] ReadingLocation: Weight: 150 lb : : Gender: Male BSA: 1.8 m2 : :: 1940 Age: 83 yrs BP: 113/95 mmHg: :Reason For Study: ATRIAL FIBRILLATION : :Ordering Physician: BEVERLY, : :TOD Tate Performed By: Tod Unger : :Referring: TOD PAUL : + + Interpretation Summary 1) Normal left ventricular size, wall motion, and systolic function (EF 60- 65%). 2) Normal right ventricular size and function. 3) No significant valvular abnormalities. 4) Compared to the Echo done 03/27/2021, no significant change. Procedure: A two-dimensional transthoracic echocardiogram with color flow and Doppler was performed. The study quality was technically difficult. There is no prior echocardiogram noted for this patient. The patient was in atrial fibrillation with heart rates between 57-99 bpm during the exam. Left Ventricle: The left ventricle is normal in size. There is mild concentric left ventricular hypertrophy. The ejection fraction is estimated to be 60-65%. Left ventricular systolic function appears normal without focal wall motion abnormalities. Diastolic parameters suggest a relaxation abnormality of the left ventricle, consistent with probable normal filling pressures. Right Ventricle: The right ventricle is normal size. The right ventricular systolic function is normal. Atria: The left atrial size is normal. Right atrial size is normal. The interatrial septum grossly appears intact with no obvious evidence for an atrial septal defect. Mitral Valve: The mitral valve is normal. There is no mitral valve stenosis. There is trace mitral regurgitation. Aortic Valve: The aortic valve is trileaflet. There is no aortic valve stenosis. No aortic regurgitation is present. Tricuspid Valve: The tricuspid valve is not well visualized, but is grossly normal. There is no tricuspid stenosis. There is a trace or physiologic amount of tricuspid regurgitation. Pulmonic Valve: The pulmonic valve is not well visualized. There is no pulmonic valvular stenosis. There is no pulmonic valvular regurgitation. Great Vessels: The aortic root is normal size. The dimensions of the ascending aorta are normal. The inferior vena cava was not visualized. Pericardium/ Pleura There is no pericardial effusion. There is no pleural effusion. MMode/2D Measurements & Calculations LVIDd: 4.0 cm LVOT diam: 2.1 cm LVIDs: 2.8 cm Ao root diam: 3.2 cm FS: 28.6 % asc Aorta Diam: 3.0 cm IVSd: 1.2 cm LVPWd: 1.2 cm LV young. diameter/BSA (cm/m^2): 2.2 LV sys. diameter/BSA (cm/m^2): 1.6 LA A2 area: 15.7 cm2 RA long axis: 4.5 cm LA A4 area: 16.4 cm2 RA area: 13.7 cm2 LA length (vol): 5.1 cm RA vol: 35.5 ml LA vol: 43.1 ml RA : 19.8 ml/m2 LA vol index: 24.1 ml/m2 RVD1 (basal): 3.6 cm RVD2 (mid): 2.8 cm TAPSE: 2.1 cm Doppler Measurements & Calculations Ao V2 max: 96.6 cm/sec LVOT Max Anibal: 82.5 cm/sec Ao V2 mean: 67.8 cm/sec LV V1 max P.7 mmHg Ao max P.7 mmHg LV V1 VTI: 19.3 cm Ao mean P.1 mmHg RIAN(I,D): 3.0 cm2 Ao V2 VTI: 23.2 cm RIAN(V,D): 3.1 cm2 sev ratio: 0.83 RIAN indexed to BSA (cm^2/m^2): 1.7 MV E max anibal: 56.0 cm/sec PA V2 max: 79.4 cm/sec MV A max anibal: 70.8 cm/sec PA V2 mean: 60.1 cm/sec MV E/A: 0.79 PA mean P.5 mmHg Med Peak E' Anibal: 8.7 cm/sec PA pr(Accel): 36.2 mmHg E/E' med: 6.5 Lat Peak E' Anibal: 6.5 cm/sec E/E' lat: 8.7 E/e' average: 7.6 MV dec time: 0.30 sec SV(LVOT): 69.8 ml Reading Physician:03:08 PM
== END ==
LOC: ECHO 13:30
PROVIDERS: PCP Family Medicine; Referring Provider Family Medicine; Visit Provider Family Medicine
DX: I48.0 Paroxysmal atrial fibrillation (principal)
CPT/HCPCS: 93306

== ENCOUNTER → 2024-01-29 14:59 | Outpatient (CLI) | payer MEDICARE, SELFPAY ==
[2020-02-01 15:20] VITALS: BMI 26.6
[2024-01-29 19:19] LABS: Appearance Urine UA CLEAR; Bilirubin Urine UA NEGATIVE (NEGATIVE); Color Urine UA YELLOW; Glucose Urine UA NEGATIVE (Negative); Ketones Urine UA NEGATIVE (NEGATIVE); Leukocyte Esterase Urine UA NEGATIVE (NEGATIVE); Nitrite Urine UA NEGATIVE (Negative); Occult Blood Urine UA NEGATIVE (Negative); Protein Urine UA TRACE (Negative); Specific Gravity Urine UA >=1.030 (1.000-1.035); pH Urine UA 5.5 (4.5-8.0)
[2024-01-29 19:27] LABS: Bacteria Urine Occasional (0-1); Culture Indicated Urine Cult Not Indicated; Mucus Urine 2+ (Negative); RBC Urine 0-1/HPF (0-5/HPF); Squamous Epithelial Cell Urine 0-1 /HPF (0-5/HPF); Urine Volume 10mL (spun); WBC Urine 0-1/HPF (0-5/HPF)
== END ==
PROVIDERS: PCP Family Medicine; Referring Provider Family Medicine; Visit Provider Family Medicine
DX: R31.9 Hematuria, unspecified (principal)
CPT/HCPCS: 81001

== ENCOUNTER → 2024-02-08 11:15 | Outpatient (CLI) | payer MEDICARE, SELFPAY ==
[2020-02-01 15:20] VITALS: BMI 26.6
--- NOTE | 2024-02-08 13:12 | DI.MRI.S_ITS ---
PROCEDURE: MR CHEST WO/W CON INDICATIONS: SARCOMA OF BACK TECHNIQUE: Noncontrast coronal T1 spin echo and STIR, sagittal T1 spin echo with fat saturation and STIR, axial T1 spin echo and T2 fast spin echo with fat saturation. After the administration of contrast, axial/sagittal/coronal T1 spin echo with fat saturation through the chest wall . COMPARISON: [facility], CT, CT CHEST ABD PEL W CON, 03/14/2023, 11:42. [facility], CT, CT CHEST WO CON, 07/02/2023, 10:46. Outside Facility, MR, MR CHEST WO/W CON, 10/10/2023, 11:44. FINDINGS: Image quality: Excellent. Bones: The visualized bone marrow demonstrates normal signal on all sequences. The overlying cortex appears intact. No abnormal intraosseous enhancement. Soft tissues: Surgical changes along the right posterior chest wall, with blooming artifact on T1 weighted sequences. No nodularity to suggest recurrence. No restricted diffusion. Similar thin layer of fluid overlying the right trapezius muscle. IMPRESSION: Surgical excision of the right posterior chest wall, without evidence of local recurrence. Dictated by: Solomon Pierre M.D. on 02/10/2024 at 8:40 Approved by: Solomon Pierre M.D. on 02/10/2024 at 8:48
== END ==
PROVIDERS: Family Provider Family Medicine; PCP Family Medicine; Referring Provider Physician Assistant; Visit Provider Physician Assistant
DX: C49.6 Malignant neoplasm of connective and soft tissue of trunk, unspecified (principal)
CPT/HCPCS: 71552; A9579

== ENCOUNTER → 2024-04-10 14:16 | Outpatient (CLI) | payer MEDICARE, SELFPAY ==
[2020-02-01 15:20] VITALS: BMI 26.6
--- NOTE | 2024-04-10 14:17 | DI.CT.S_ITS ---
PROCEDURE: CT CHEST WO CON INDICATIONS: SARCOMA OF BACK TECHNIQUE: Noncontrast 5 mm thick sections acquired from the pulmonary apices to the posterior costophrenic angles. 1 mm lung window, 5 mm thick coronal and sagittal and 7 mm axial MIP reformats were then acquired. For radiation dose reduction, the following was used: automated exposure control, adjustment of mA and/or kV according to patient size. COMPARISON: Outside Facility, RG, CT THORAX W/O CONTRAST, 01/09/2024, 12:12. Outside Facility, MR, MR CHEST WO/W CON, 10/10/2023, 11:44. Outside Facility, CT, CT CHEST WO CON, 10/10/2023, 10:45. [facility], MR, MR CHEST WO/W CON, 07/02/2023, 11:14. [facility], CT, CT CHEST WO CON, 07/02/2023, 10:46. [facility], MR, MR CHEST WO/W CON, 04/10/2024, 15:18. Outside Facility, CT, CT CHEST WO CON, 01/09/2024, 12:12. FINDINGS: Image quality: Diagnostic, although evaluation is limited in the absence of intravenous contrast. Thyroid: The thyroid gland is within normal limits. Cardiac: The heart size is within normal limits. There is no pericardial effusion. Mild aortic valve and coronary artery calcifications. Aorta: The thoracic aortic diameter is within normal limits. There is no aneurysm or dissection. Pulmonary Artery: The main pulmonary artery diameter is within normal limits. There is no aneurysm or filling defect in the main pulmonary trunk. Lungs: No focal lung consolidation. Unchanged 1.8 cm pneumatocele in the right lower lobe (3/185) and 1.0 cm pneumatocele in the left lower lobe (3/191). The following, unchanged perifissural ovoid-triangular nodules are identified (compared to CT chest without contrast 01/09/2024, 10/10/2023, and 07/02/2023): 0.4 cm triangular nodule in the left upper lobe (3/169), 0.6 cm triangular nodule at the right lower lobe base abutting the hemidiaphragm (3/240) 0.7 cm calcified granuloma at the right lower lobe (3/159).. Additional unchanged (dating back to 07/02/2023) solid nodules are also identified: 0.2 cm nodule in the right upper lobe (3/125) 0.4 cm nodule in the lateral segment of the right middle lobe (3/168), 0.7 cm nodule in the medial segment of the right middle lobe (3/195), 0.5 cm nodule in the medial segment of the right middle lobe (3/208). Pleura: There is no pneumothorax or pleural effusion. Airways: The trachea and mainstem bronchi are patent. Lymph Nodes: There is no mediastinal, hilar, or axillary lymphadenopathy. Small calcified right hilar nodes, likely secondary to prior granulomatous disease or infection Esophagus: The esophagus is within normal limits. Bones: No acute osseous abnormality. No lytic or blastic lesion. Upper Abdomen: Status post cholecystectomy. Punctate splenic and hepatic calcifications, likely secondary to prior granulomatous disease or infection. Soft tissue: Status post prior excision of soft tissues at the level of the right midthoracic spine (09/04; 6), with residual fat stranding but without any recurrent nodularity. IMPRESSION: 1. No new rib destruction or soft tissue nodularity. 2. Unchanged 2-7 pulmonary nodules dating back to 07/02/2023. Comparison beyond 07/02/2023 is limited due to unsuccessful image retrieval. Dictated by: Harpreet Scales M.D. on 04/13/2024 at 8:47 Approved by: Harpreet Scales M.D. on 04/13/2024 at 9:12
--- NOTE | 2024-04-10 14:19 | DI.MRI.S_ITS ---
PROCEDURE: MR CHEST WO/W CON INDICATIONS: SARCOMA OF BACK TECHNIQUE: Noncontrast coronal T1 spin echo and STIR, sagittal T1 spin echo with fat saturation and STIR, axial T1 spin echo and T2 fast spin echo with fat saturation. After the administration of contrast, axial/sagittal/coronal T1 spin echo with fat saturation through the chest wall. COMPARISON: [facility], , MR CHEST WO/W CON, 02/08/2024, 11:42. FINDINGS: Image quality: Excellent. Bones: The visualized bone marrow demonstrates normal signal on all sequences. The overlying cortex appears intact. No abnormal intraosseous enhancement. No vertebral body compression fracture. Soft tissues: Postsurgical changes are again seen in right posterior chest wall just to the right of midline as indicated by fiducial marker. There is no discrete soft tissue mass or drainable fluid collection seen at the site of surgery. No area of abnormal enhancement is seen. The scanned muscles demonstrate normal overall bulk and internal signal. The visualized right lung field is grossly clear. IMPRESSION: Stable postsurgical changes in right posterior chest wall without evidence of local recurrence. No significant changes from previous study. Dictated by: Anupam Lucero M.D. on 04/11/2024 at 21:43 Approved by: Anupam Lucero M.D. on 04/11/2024 at 21:47
== END ==
PROVIDERS: Family Provider Family Medicine; PCP Family Medicine; Referring Provider Physician Assistant; Visit Provider Physician Assistant
DX: C49.6 Malignant neoplasm of connective and soft tissue of trunk, unspecified (principal); R91.8 Other nonspecific abnormal finding of lung field; I25.10 Atherosclerotic heart disease of native coronary artery without angina pectoris; I35.8 Other nonrheumatic aortic valve disorders; Z90.49 Acquired absence of other specified parts of digestive tract
CPT/HCPCS: 71250; 71552; A9579

== ENCOUNTER 2024-06-01 10:45 | Outpatient (RCR) | payer MEDICARE, SELFPAY ==
[2020-02-01 15:20] VITALS: BMI 26.6
--- NOTE | 2024-03-18 16:45 | PT.OPPOC ---
Physical, Occupational & Speech Therapy At [facility] Current Diagnoses Unsteadiness on feet (03/18/24) Other abnormalities of gait and mobility (03/18/24) Visit Care Team Role Provider Type Tod Juarez MD Attending Provider Physician Family Provider Primary Care Provider Referring Provider Specialty: [facility] Address: [address] [place] [address], [facility] Email: [email or web address] Plan Of Care PT-OP-B Current Condition Start: 03/18/24 17:37 Freq: Status: Active Protocol: Document 03/18/24 16:10 DCW (Rec: 03/18/24 17:49 DCW [id number]) Current Condition History of Current Condition Onset Date Multi-year history Current Complaints Weakness, imbalance, fatigue, deconditioning History of Current Condition Pt is an 83 year old male presenting with a two year history of decreased activity tolerance, weakness, and poor balance. Pt notes that about two years ago, he was hospitalized with an unknown illness, and spent a month in the hospital bed, and another two weeks in rehab with minimal movement. Pt notes that he has had poor activity tolerance since then, I'm just tired all the time, and my balance is shot. Does attend exercise classes at the [facility], but admits that it is pretty easy stuff, doesn't feel like he gets much out of it. PT-OP-T Assessment and Plan Start: 03/18/24 17:37 Freq: Status: Active Protocol: Document 03/18/24 16:10 DCW (Rec: 03/20/24 08:41 DCW [id number]) Physical Therapy Assessment Rehab Potential Rehabilitation Potential Good Evaluation Complexity Number of Personal Factors/Comorbidities 1-2 Number of Body Systems Impaired 4 or More Clinical Presentation at Evaluation Unstable Impairments Impairments Activity Tolerance,Balance, Functional Activities, Functional Mobility,Strength Other Concerns Fall Risk Yes, per score on DGI () Goals Three Impairment MMT of 4-/5 hip abduction bilaterally Penitentiary Goal (LTG) Pt to increase MMT of hip abduction to at least 4/5 to assist activity tolerance and increase stability during gait . LTG Duration 05/18/24 Two Impairment Pt presents as an increased falls risk, per DGI score () School Child Care Attendant Goal (LTG) Pt to improve DGI score by at least four points to 20/, in order to demonstrate a reduction in falls risk LTG Duration 05/18/24 One Impairment Pt does not have an appropriate home exercise program Short Term Goal (STG) Pt to be independent and compliant with an appropriate HEP STG Duration 04/17/24 Assessment Summary Assessment Pt presents with signs and symptoms consistent with general imbalance and deconditioning. Pt does test as an increased falls risk, per score on DGI (). Static balance is slightly better, scoring a 47/56 on the Lozano. Pt additionally exhibits bilateral hip weakness, particularly hip abduction, and decreased activity tolerance. Pt should benefit from skilled therapeutic intervention focused on strengthening, dynamic balance challenges, increased activity tolerance, implementation of HEP, and falls recovery. Physical Therapy Plan Frequency and Duration Frequency of Treatment 2x/Week Plan of Care Start Date 03/18/24 Plan of Care End Date 05/18/24 Therapeutic Interventions Therapeutic Interventions Balance Training,Gait Training ,Home Exercise Program,Joint Mobilizations,Manual Therapy, Neuromuscular Re-education, Patient/Caregiver Education, Self-Care/Home Management,Soft Tissue Mobilization, Therapeutic Activities, Therapeutic Exercises Next Visit Focus/Plan Next Note Type Treatment Note Next Visit Plan Balance challenges, hip strengthening, activity tolerance Plan of Care Dates Plan of Care Start Date 03/18/24 Plan of Care End Date 05/18/24 Electronically Signed by: Manoj Alcocer, PT 03/20/24 0842 If you are in agreement with this Plan of Care, please return a signed and dated copy. I have reviewed this Plan of Care and certify that the skilled therapy services above are required to meet the patient?s needs. Physician Signature Date Printed Name and Credentials Clinical Instructor Signature Printed Name and Credentials
--- NOTE | 2024-03-18 16:45 | PT.OIE ---
Current Diagnoses Unsteadiness on feet (03/18/24) Other abnormalities of gait and mobility (03/18/24) Past Medical History (Last Updated 01/19/24 @ 21:27 by Ana Lugo) Acute urinary retention BPH (benign prostatic hyperplasia) Chronic back pain (~2019) Chronic cough (~2019) Depression (~2021) Gross hematuria History of urinary incontinence (~2019) Measles Melanoma (~2019) Mumps Paroxysmal atrial fibrillation Skin disorder Past Surgical History (Last Updated 01/19/24 @ 21:27 by Ana Lugo) Anesthesia History of oral surgery Visit Care Team Role Provider Type Tod Juarez MD Attending Provider Physician Family Provider Primary Care Provider Referring Provider Specialty: Family Practice Obstetrics Address: [address] [place] [address], [id number] Email: [email or web address] Physical Therapy Initial Evaluation PT-OP-A Visit Information Start: 03/18/24 17:37 Freq: Status: Active Protocol: Document 03/18/24 16:10 DCW (Rec: 03/18/24 17:49 [facility] [id number]) Out-Patient Physical Therapy Visit Information Visit Information Visit Type Initial Evaluation Visit Note Late arrival Visit Start Time 16:10 Visit Stop Time 16:45 Visit Number 1 Number of SOLE STAPLER WELT Visits 0 Evaluation Information Evaluation Date 03/18/24 PT-OP-B Current Condition Start: 03/18/24 17:37 Freq: Status: Active Protocol: Document 03/18/24 16:10 DCW (Rec: 03/18/24 17:49 DC [id number]) Current Condition History of Current Condition Onset Date Multi-year history Current Complaints Weakness, imbalance, fatigue, deconditioning History of Current Condition Pt is an 83 year old male presenting with a two year history of decreased activity tolerance, weakness, and poor balance. Pt notes that about two years ago, he was hospitalized with an unknown illness, and spent a month in the hospital bed, and another two weeks in rehab with minimal movement. Pt notes that he has had poor activity tolerance since then, I'm just tired all the time, and my balance is shot. Does attend exercise classes at the [facility], but admits that it is pretty easy stuff, doesn't feel like he gets much out of it. PT-OP-C Subjective Start: 03/18/24 17:37 Freq: Status: Active Protocol: Document 03/18/24 16:10 DCW (Rec: 03/18/24 17:49 DCW [id number]) OP-PT Subjective Patient Comments Patient Comments I guess I did fall yesterday, but that was more I tripped over something on the ground that I didn't notice, it wasn' t really related to anything else. PT-OP-D Balance Start: 03/18/24 17:37 Freq: Status: Active Protocol: Document 03/18/24 16:10 DCW (Rec: 03/18/24 17:49 DCW [id number]) Balance Tests Lozano Balance Test Lozano Balance Test Score 47/56 Lozano Balance Assessment Evaluation Sitting to Standing Ability Independent w/out Hands Unsupported Stance Safely- 2 minutes Sitting Unsupported, Feet on Floor Safely- 2 minutes Standing to Sitting Ability Safely, Minimal Hand Use Transfer Ability Safely, Minimal Hand Use Unsupported Stance- Eyes Closed Safely, 10 seconds Unsupported Stance- Eyes Open Independent, 1 minute Reaching Forward Standing Confidently, 10 inches Pick- Up Object From Floor Independent/Safe Look Behind Shoulder - Standing Turns Sideways Only Turning 360 Degrees Turns slowly, but safely Unsupported Stance, Alternating Feet on 4 Steps w/Supervision Stair Unsupported Tandem Stance Achieves Tandem Unilateral Leg Stance Lifts Leg/Unable to Hold Total Score Lozano Total Score (out of 56 points) 47 Lozano Impairment Rating 1 to 19% Impaired (Score 45-55 ) PT-OP-E Functional Tests Start: 03/18/24 17:37 Freq: Status: Active Protocol: Document 03/18/24 16:10 DCW (Rec: 03/18/24 17:49 DCW [id number]) Functional Tests Dynamic Gait Index (DGI) Score 16 DGI Impairment Rating 20 to <40% Impaired (Score 15- 19) PT-OP-M Strength Start: 03/18/24 17:37 Freq: Status: Active Protocol: Document 03/18/24 16:10 DCW (Rec: 03/18/24 17:49 DCW [id number]) Hip Strength Hip Manual Muscle Testing Right Flexion (L2) 4 Good Abduction 4- Good- Adduction 4+ Good+ External Rotation 4+ Good+ Internal Rotation 4 Good Left Flexion (L2) 4 Good Abduction 4- Good- Adduction 4+ Good+ External Rotation 4+ Good+ Internal Rotation 4+ Good+ Knee Strength Knee Manual Muscle Testing Right Flexion (S2) 4+ Good+ Extension (L3) 4+ Good+ Left Flexion (S2) 4+ Good+ Extension (L3) 4+ Good+ Ankle/Foot Strength Ankle and Foot Manual Muscle Testing Right Dorsiflexion (L4) 4 Good Left Dorsiflexion (L4) 4 Good PT-OP-T Assessment and Plan Start: 03/18/24 17:37 Freq: Status: Active Protocol: Document 03/18/24 16:10 DCW (Rec: 03/20/24 08:41 DCW [id number]) Physical Therapy Assessment Rehab Potential Rehabilitation Potential Good Evaluation Complexity Number of Personal Factors/Comorbidities 1-2 Number of Body Systems Impaired 4 or More Clinical Presentation at Evaluation Unstable Impairments Impairments Activity Tolerance,Balance, Functional Activities, Functional Mobility,Strength Other Concerns Fall Risk Yes, per score on DGI () Goals Three Impairment MMT of 4-/5 hip abduction bilaterally Accounts Payable Specialist Goal (LTG) Pt to increase MMT of hip abduction to at least 4/5 to assist activity tolerance and increase stability during gait . LTG Duration 05/18/24 Two Impairment Pt presents as an increased falls risk, per DGI score () Correction Goal (LTG) Pt to improve DGI score by at least four points to 20/24, in order to demonstrate a reduction in falls risk LTG Duration 05/18/24 One Impairment Pt does not have an appropriate home exercise program Short Term Goal (STG) Pt to be independent and compliant with an appropriate HEP STG Duration 04/17/24 Assessment Summary Assessment Pt presents with signs and symptoms consistent with general imbalance and deconditioning. Pt does test as an increased falls risk, per score on DGI (). Static balance is slightly better, scoring a 47/56 on the Lozano. Pt additionally exhibits bilateral hip weakness, particularly hip abduction, and decreased activity tolerance. Pt should benefit from skilled therapeutic intervention focused on strengthening, dynamic balance challenges, increased activity tolerance, implementation of HEP, and falls recovery. Physical Therapy Plan Frequency and Duration Frequency of Treatment 2x/Week Plan of Care Start Date 03/18/24 Plan of Care End Date 05/18/24 Therapeutic Interventions Therapeutic Interventions Balance Training,Gait Training ,Home Exercise Program,Joint Mobilizations,Manual Therapy, Neuromuscular Re-education, Patient/Caregiver Education, Self-Care/Home Management,Soft Tissue Mobilization, Therapeutic Activities, Therapeutic Exercises Next Visit Focus/Plan Next Note Type Treatment Note Next Visit Plan Balance challenges, hip strengthening, activity tolerance
--- NOTE | 2024-03-20 16:36 | PT.OTN ---
Current Diagnoses Unsteadiness on feet (03/20/24) Other abnormalities of gait and mobility (03/20/24) Physical Therapy Treatment Note PT-OP-A Visit Information Start: 03/18/24 17:37 Freq: Status: Active Protocol: Document 03/20/24 15:50 DCW (Rec: 03/20/24 16:36 DCW [id number]) Out-Patient Physical Therapy Visit Information Visit Information Visit Type Treatment Note Visit Start Time 15:50 Visit Stop Time 16:35 Visit Number 2 Number of BERRY PLANTER Visits 0 Evaluation Information Evaluation Date 03/18/24 PT-OP-B Current Condition Start: 03/18/24 17:37 Freq: Status: Active Protocol: Document 03/18/24 16:10 DCW (Rec: 03/18/24 17:49 DCW [id number]) Current Condition History of Current Condition Onset Date Multi-year history Current Complaints Weakness, imbalance, fatigue, deconditioning History of Current Condition Pt is an 83 year old male presenting with a two year history of decreased activity tolerance, weakness, and poor balance. Pt notes that about two years ago, he was hospitalized with an unknown illness, and spent a month in the hospital bed, and another two weeks in rehab with minimal movement. Pt notes that he has had poor activity tolerance since then, I'm just tired all the time, and my balance is shot. [facility], but admits that it is pretty easy stuff, doesn't feel like he gets much out of it. PT-OP-C Subjective Start: 03/18/24 17:37 Freq: Status: Active Protocol: Document 03/20/24 15:50 DCW (Rec: 03/20/24 16:36 DCW [id number]) OP-PT Subjective Patient Comments Patient Comments Pt notes he is feeling pretty good today. PT-OP-D Balance Start: 03/18/24 17:37 Freq: Status: Active Protocol: Document 03/18/24 16:10 DCW (Rec: 03/18/24 17:49 DCW [id number]) Balance Tests Lozano Balance Test Lozano Balance Test Score 47/56 Lozano Balance Assessment Evaluation Sitting to Standing Ability Independent w/out Hands Unsupported Stance Safely- 2 minutes Sitting Unsupported, Feet on Floor Safely- 2 minutes Standing to Sitting Ability Safely, Minimal Hand Use Transfer Ability Safely, Minimal Hand Use Unsupported Stance- Eyes Closed Safely, 10 seconds Unsupported Stance- Eyes Open Independent, 1 minute Reaching Forward Standing Confidently, 10 inches Pick- Up Object From Floor Independent/Safe Look Behind Shoulder - Standing Turns Sideways Only Turning 360 Degrees Turns slowly, but safely Unsupported Stance, Alternating Feet on 4 Steps w/Supervision Stair Unsupported Tandem Stance Achieves Tandem Unilateral Leg Stance Lifts Leg/Unable to Hold Total Score Lozano Total Score (out of 56 points) 47 Lozano Impairment Rating 1 to 19% Impaired (Score 45-55 ) PT-OP-E Functional Tests Start: 03/18/24 17:37 Freq: Status: Active Protocol: Document 03/18/24 16:10 DCW (Rec: 03/18/24 17:49 DCW [id number]) Functional Tests Dynamic Gait Index (DGI) Score DGI Impairment Rating 20 to <40% Impaired (Score 15- 19) PT-OP-M Strength Start: 03/18/24 17:37 Freq: Status: Active Protocol: Document 03/18/24 16:10 DCW (Rec: 03/18/24 17:49 DCW [id number]) Hip Strength Hip Manual Muscle Testing Right Flexion (L2) 4 Good Abduction 4- Good- Adduction 4+ Good+ External Rotation 4+ Good+ Internal Rotation 4 Good Left Flexion (L2) 4 Good Abduction 4- Good- Adduction 4+ Good+ External Rotation 4+ Good+ Internal Rotation 4+ Good+ Knee Strength Knee Manual Muscle Testing Right Flexion (S2) 4+ Good+ Extension (L3) 4+ Good+ Left Flexion (S2) 4+ Good+ Extension (L3) 4+ Good+ Ankle/Foot Strength Ankle and Foot Manual Muscle Testing Right Dorsiflexion (L4) 4 Good Left Dorsiflexion (L4) 4 Good PT-OP-Q Treatments Start: 03/18/24 17:37 Freq: Status: Active Protocol: Document 03/20/24 15:50 DCW (Rec: 03/20/24 16:36 DCW [id number]) Gym Equipment Cable Column (Body Solid) Hip Adduction Resistance 40# Hip Abduction Resistance 40# Shuttle Recovery Unilateral Squats Resistance 37# Bilateral Squats Resistance 62# Shuttle Balance Red Details WBOS, Staggered Therapeutic Exercises Standing Exercises Toe Taps Standing Exercise Name Toe-taps Side bilateral Resistance 5# Equipment Used 6 Hip Extension Standing Exercise Name Hip Extension Side bilateral Resistance Green loop Other Exercises Resisted Ambulation Other Exercise Name Resisted side-stepping Resistance Green loop Neuro Re-Education Treatment Balance Activities Foam Details Foam stance Surface AirEx Comments Head turns, eyes closed Uneven Surface Details Hurdles Surface Uneven blue pad PT-OP-T Assessment and Plan Start: 03/18/24 17:37 Freq: Status: Active Protocol: Document 03/20/24 15:50 DCW (Rec: 03/20/24 16:36 DCW [id number]) Physical Therapy Assessment Impairments Impairments Activity Tolerance,Balance, Functional Activities, Functional Mobility,Strength Goals Three Impairment MMT of 4-/5 hip abduction bilaterally [facility] Goal (LTG) Pt to increase MMT of hip abduction to at least 4/5 to assist activity tolerance and increase stability during gait . LTG Duration 05/18/24 Two Impairment Pt presents as an increased falls risk, per DGI score () Melter Caster Goal (LTG) Pt to improve DGI score by at least four points to , in order to demonstrate a reduction in falls risk LTG Duration 05/18/24 One Impairment Pt does not have an appropriate home exercise program Short Term Goal (STG) Pt to be independent and compliant with an appropriate HEP STG Duration 04/17/24 Assessment Summary Assessment Noted fatigue with strengthening activities, but did fairly well during balance challenges. Continue to work on balance, LE strength, and improving activity tolerance. Physical Therapy Plan Frequency and Duration Frequency of Treatment 2x/Week Plan of Care Start Date 03/18/24 Plan of Care End Date 05/18/24 Therapeutic Interventions Therapeutic Interventions Balance Training,Gait Training ,Home Exercise Program,Joint Mobilizations,Manual Therapy, Neuromuscular Re-education, Patient/Caregiver Education, Self-Care/Home Management,Soft Tissue Mobilization, Therapeutic Activities, Therapeutic Exercises Next Visit Focus/Plan Next Note Type Treatment Note Next Visit Plan Balance challenges, hip strengthening, activity tolerance
--- NOTE | 2024-03-23 14:34 | PT.OTN ---
Current Diagnoses Unsteadiness on feet (03/23/24) Other abnormalities of gait and mobility (03/23/24) Physical Therapy Treatment Note PT-OP-A Visit Information Start: 03/18/24 17:37 Freq: Status: Active Protocol: Document 03/23/24 13:56 SP (Rec: 03/23/24 14:36 SP [id number]) Out-Patient Physical Therapy Visit Information Visit Information Visit Type Treatment Note Visit Start Time 13:56 Visit Stop Time 14:34 Visit Number 3 Number of HOSPICE RN Visits 1 Evaluation Information Evaluation Date 03/18/24 PT-OP-B Current Condition Start: 03/18/24 17:37 Freq: Status: Active Protocol: Document 03/18/24 16:10 DCW (Rec: 03/18/24 17:49 DCW [id number]) Current Condition History of Current Condition Onset Date Multi-year history Current Complaints Weakness, imbalance, fatigue, deconditioning History of Current Condition Pt is an 83 year old male presenting with a two year history of decreased activity tolerance, weakness, and poor balance. Pt notes that about two years ago, he was hospitalized with an unknown illness, and spent a month in the hospital bed, and another two weeks in rehab with minimal movement. Pt notes that he has had poor activity tolerance since then, I'm just tired all the time, and my balance is shot. Does attend exercise classes at the [facility], but admits that it is pretty easy stuff, doesn't feel like he gets much out of it. PT-OP-C Subjective Start: 03/18/24 17:37 Freq: Status: Active Protocol: Document 03/23/24 13:56 SP (Rec: 03/23/24 14:36 SP [id number]) OP-PT Subjective Patient Comments Patient Comments Pt report R leg is problematic , at times can't step on it with pain like going up stairs and it scuffs the floor causing him to trip.. PT-OP-D Balance Start: 03/18/24 17:37 Freq: Status: Active Protocol: Document 03/18/24 16:10 DCW (Rec: 03/18/24 17:49 DCW [id number]) Balance Tests Lozano Balance Test Lozano Balance Test Score 47/56 Lozano Balance Assessment Evaluation Sitting to Standing Ability Independent w/out Hands Unsupported Stance Safely- 2 minutes Sitting Unsupported, Feet on Floor Safely- 2 minutes Standing to Sitting Ability Safely, Minimal Hand Use Transfer Ability Safely, Minimal Hand Use Unsupported Stance- Eyes Closed Safely, 10 seconds Unsupported Stance- Eyes Open Independent, 1 minute Reaching Forward Standing Confidently, 10 inches Pick- Up Object From Floor Independent/Safe Look Behind Shoulder - Standing Turns Sideways Only Turning 360 Degrees Turns slowly, but safely Unsupported Stance, Alternating Feet on 4 Steps w/Supervision Stair Unsupported Tandem Stance Achieves Tandem Unilateral Leg Stance Lifts Leg/Unable to Hold Total Score Lozano Total Score (out of 56 points) 47 Lozano Impairment Rating 1 to 19% Impaired (Score 45-55 ) PT-OP-E Functional Tests Start: 03/18/24 17:37 Freq: Status: Active Protocol: Document 03/18/24 16:10 DCW (Rec: 03/18/24 17:49 DCW [id number]) Functional Tests Dynamic Gait Index (DGI) Score DGI Impairment Rating 20 to <40% Impaired (Score 15- 19) PT-OP-M Strength Start: 03/18/24 17:37 Freq: Status: Active Protocol: Document 03/18/24 16:10 DCW (Rec: 03/18/24 17:49 DCW [id number]) Hip Strength Hip Manual Muscle Testing Right Flexion (L2) 4 Good Abduction 4- Good- Adduction 4+ Good+ External Rotation 4+ Good+ Internal Rotation 4 Good Left Flexion (L2) 4 Good Abduction 4- Good- Adduction 4+ Good+ External Rotation 4+ Good+ Internal Rotation 4+ Good+ Knee Strength Knee Manual Muscle Testing Right Flexion (S2) 4+ Good+ Extension (L3) 4+ Good+ Left Flexion (S2) 4+ Good+ Extension (L3) 4+ Good+ Ankle/Foot Strength Ankle and Foot Manual Muscle Testing Right Dorsiflexion (L4) 4 Good Left Dorsiflexion (L4) 4 Good PT-OP-Q Treatments Start: 03/18/24 17:37 Freq: Status: Active Protocol: Document 03/23/24 13:56 SP (Rec: 03/23/24 14:36 SP [id number]) Gym Equipment Cable Column (Body Solid) Hip Adduction Resistance 40# Reps/Time 2x15 Hip Abduction Resistance 40# Reps/Time 2x15 Shuttle Recovery Unilateral Squats Details cued slower eccentric control, no locking knee Resistance 37# 1 navy band Reps/Time x1o each LE Bilateral Squats Details cued no locking kn ee Resistance 62# 2 navy bands Reps/Time 2x15 (25 next tx) Therapeutic Exercises Sitting Exercises sit<>stands Sitting Exercise Name added to HEP /c HO Equipment Used mesh chair arms across chest Reps/Minutes x10 Comments cued hip hinge, slowe descend. hip abduction Sitting Exercise Name isometric clamshell- added to HEP /c HO Resistance TB #4 dark blue at thighs Reps/Minutes 5 SH x15 Comments cued slower eccentric control Standing Exercises Hip Extension Standing Exercise Name Hip Extension- added to HEP /c HO Side bilateral Resistance Green loop PT (dark blue #4 home) at ankles Reps/Minutes x15 reps Comments cued taller posture Other Exercises Resisted Ambulation Other Exercise Name Resisted fwd/bwd, side stepping Resistance Green loop at ankles Equipment Used near but no rail Reps/Minutes 15 ft x3 laps each direction Comments R foot caught x2 fwd then 1 retro Gait Training Gait Activity no AD Device Used 0 Level of Assistance SBA Surface carpet, tile Distance/Duration 340 ft 2 laps clinic inside Treatment Focus stride, ft clearance, midline stability Comments cued DF R LE advancement, R arm swing with LLE Self-Care/Home Management Treatment Education Patient Education Fall Risk,Home Exercise Program,Safety Other Education added STS, resisted hip ext and seated hip abd holds. Ed for shoes donned that fit secure. arrived loafers wtihout socks and flopped when walked. PT-OP-T Assessment and Plan Start: 03/18/24 17:37 Freq: Status: Active Protocol: Document 03/23/24 13:56 SP (Rec: 03/23/24 14:36 SP [id number]) Physical Therapy Assessment Goals Three Impairment MMT of 4-/5 hip abduction bilaterally [facility] Goal (LTG) Pt to increase MMT of hip abduction to at least 4/5 to assist activity tolerance and increase stability during gait . LTG Duration 05/18/24 Two Impairment Pt presents as an increased falls risk, per DGI score () [facility] Goal (LTG) Pt to improve DGI score by at least four points to , in order to demonstrate a reduction in falls risk LTG Duration 05/18/24 One Impairment Pt does not have an appropriate home exercise program Short Term Goal (STG) Pt to be independent and compliant with an appropriate HEP STG Duration 04/17/24 Assessment Summary Assessment Pt reported some fatigues with resisted ex. Was able to complete 2 sets machine resistance. Provided resisted HEP for carryover home, see HOs provided. Cues for DF during gait and resisted fwd/ bwk stepping due to R foot caught floor, self recovery with LOB but HOSPICE RN provided close sBA. Physical Therapy Plan Frequency and Duration Frequency of Treatment 2x/Week Plan of Care Start Date 03/18/24 Plan of Care End Date 05/18/24 Therapeutic Interventions Therapeutic Interventions Balance Training,Gait Training ,Home Exercise Program,Joint Mobilizations,Manual Therapy, Neuromuscular Re-education, Patient/Caregiver Education, Self-Care/Home Management,Soft Tissue Mobilization, Therapeutic Activities, Therapeutic Exercises Next Visit Focus/Plan Next Note Type Treatment Note Next Visit Plan reacheck given HEP. POC: Balance challenges, hip strengthening, activity tolerance
--- NOTE | 2024-03-25 12:27 | PT-OP ANOTE ---
Pt cancelled appt today, thermostat mechanic message states cancelled due to pt is vestibular. XEROX MACHINE ASSEMBLER called and pt states issues with ferry before disconnected bad building and construction manager. XEROX MACHINE ASSEMBLER called back left message opening on Sat 9am, 1345 and 1430 currently can call back and reschedule appt.
--- NOTE | 2024-03-30 14:40 | PT.OTN ---
Current Diagnoses Unsteadiness on feet (03/30/24) Other abnormalities of gait and mobility (03/30/24) Physical Therapy Treatment Note PT-OP-A Visit Information Start: 03/18/24 17:37 Freq: Status: Active Protocol: Document 03/30/24 13:51 SP (Rec: 03/30/24 15:28 SP [id number]) Out-Patient Physical Therapy Visit Information Visit Information Visit Type Treatment Note Visit Start Time 13:51 Visit Stop Time 14:40 Visit Number 4 Number of WINE BOTTLE INSPECTOR Visits 2 Evaluation Information Evaluation Date 03/18/24 PT-OP-B Current Condition Start: 03/18/24 17:37 Freq: Status: Active Protocol: Document 03/18/24 16:10 DCW (Rec: 03/18/24 17:49 DCW [id number]) Current Condition History of Current Condition Onset Date Multi-year history Current Complaints Weakness, imbalance, fatigue, deconditioning History of Current Condition Pt is an 83 year old male presenting with a two year history of decreased activity tolerance, weakness, and poor balance. Pt notes that about two years ago, he was hospitalized with an unknown illness, and spent a month in the hospital bed, and another two weeks in rehab with minimal movement. Pt notes that he has had poor activity tolerance since then, I'm just tired all the time, and my balance is shot. Does attend exercise classes at the [facility], but admits that it is pretty easy stuff, doesn't feel like he gets much out of it. PT-OP-C Subjective Start: 03/18/24 17:37 Freq: Status: Active Protocol: Document 03/30/24 13:51 SP (Rec: 03/30/24 15:28 SP [id number]) OP-PT Subjective Patient Comments Patient Comments Pt reports felt fine after last tx, compliant with HEP and feels doing well, ready for more. He reports gets head aches and pain in upper traps. Pt report only drinks 2 -3 glasses 12 oz water/day noted urine very yellow coloring and at times has blood in urine. Has appt with physician next week. Has a recheck MRI and CT scan coming up soon. PT-OP-D Balance Start: 03/18/24 17:37 Freq: Status: Active Protocol: Document 03/18/24 16:10 DCW (Rec: 03/18/24 17:49 [facility] [id number]) Balance Tests Lozano Balance Test Lozano Balance Test Score 47/56 Lozano Balance Assessment Evaluation Sitting to Standing Ability Independent w/out Hands Unsupported Stance Safely- 2 minutes Sitting Unsupported, Feet on Floor Safely- 2 minutes Standing to Sitting Ability Safely, Minimal Hand Use Transfer Ability Safely, Minimal Hand Use Unsupported Stance- Eyes Closed Safely, 10 seconds Unsupported Stance- Eyes Open Independent, 1 minute Reaching Forward Standing Confidently, 10 inches Pick- Up Object From Floor Independent/Safe Look Behind Shoulder - Standing Turns Sideways Only Turning 360 Degrees Turns slowly, but safely Unsupported Stance, Alternating Feet on 4 Steps w/Supervision Stair Unsupported Tandem Stance Achieves Tandem Unilateral Leg Stance Lifts Leg/Unable to Hold Total Score Lozano Total Score (out of 56 points) 47 Lozano Impairment Rating 1 to 19% Impaired (Score 45-55 ) PT-OP-E Functional Tests Start: 03/18/24 17:37 Freq: Status: Active Protocol: Document 03/18/24 16:10 DCW (Rec: 03/18/24 17:49 [facility] [id number]) Functional Tests Dynamic Gait Index (DGI) Score DGI Impairment Rating 20 to <40% Impaired (Score 15- 19) PT-OP-M Strength Start: 03/18/24 17:37 Freq: Status: Active Protocol: Document 03/18/24 16:10 DCW (Rec: 03/18/24 17:49 [facility] [id number]) Hip Strength Hip Manual Muscle Testing Right Flexion (L2) 4 Good Abduction 4- Good- Adduction 4+ Good+ External Rotation 4+ Good+ Internal Rotation 4 Good Left Flexion (L2) 4 Good Abduction 4- Good- Adduction 4+ Good+ External Rotation 4+ Good+ Internal Rotation 4+ Good+ Knee Strength Knee Manual Muscle Testing Right Flexion (S2) 4+ Good+ Extension (L3) 4+ Good+ Left Flexion (S2) 4+ Good+ Extension (L3) 4+ Good+ Ankle/Foot Strength Ankle and Foot Manual Muscle Testing Right Dorsiflexion (L4) 4 Good Left Dorsiflexion (L4) 4 Good PT-OP-Q Treatments Start: 03/18/24 17:37 Freq: Status: Active Protocol: Document 03/30/24 13:51 SP (Rec: 03/30/24 15:28 SP [id number]) Therapeutic Exercises Supine Exercises clamshell Supine Exercise Name initiated in PT- added to HEP for core/hip abd strengthening Side bilateral Resistance TB #2 at thighs- Single repeated Equipment Used R>L weakness Reps/Minutes 2x15 reps Comments cued opposite LE press out pnfree range, slow pace, stationary level pelvis Sidelying Exercises hip abduction Sidelying Exercise Name trialed in PT Side bilateral Resistance AROM Equipment Used cued stacked on side bottom leg bent Reps/Minutes x10 Comments cued TA, very tiring and cause low back strain- DC 03/30/24 Sitting Exercises sit<>stands Sitting Exercise Name reviewed HEP Resistance AROM Equipment Used 18 table arms across chest Reps/Minutes x10 Comments cued hip hinge, slowe descend. hip abduction Sitting Exercise Name isometric clamshell- reviewed HEP Resistance TB #4 dark blue at thighs Reps/Minutes 5 SH x15 Comments cued slower eccentric control, good tiring effort Neuro Re-Education Treatment Balance Activities corner balance Details semitandem, tandem Equipment corner wall at back, chair front Comments semitandem- head turns tandem looking forward Cued wt shift fwd even BLEs, rhomboid and core fac. Self-Care/Home Management Treatment Education Patient Education Safety Other Education Education on importance of intake water hydration for full body and urinary track bladder health. Discussed dehydration can be contributer to headaches, not clear thinking and at times decreased balance. Suggested increase water intake to 5-10 12oz glasses per day but progress to up to [facility] recommendations 15 cups a day and up to 50% of body weight with awareness of will increased trips to the bathroom and mindful few hours before bed to reduce to allow not needing to get up at night. Discussed urine should be light yellow, dark yellow is indicator dyhydrated, verbalized understanding. PT-OP-T Assessment and Plan Start: 03/18/24 17:37 Freq: Status: Active Protocol: Document 03/30/24 13:51 SP (Rec: 03/30/24 15:28 SP [id number]) Physical Therapy Assessment Goals Three Impairment MMT of 4-/5 hip abduction bilaterally Prehemmer Goal (LTG) Pt to increase MMT of hip abduction to at least 4/5 to assist activity tolerance and increase stability during gait . LTG Duration 05/18/24 Two Impairment Pt presents as an increased falls risk, per DGI score () Senior Living Goal (LTG) Pt to improve DGI score by at least four points to , in order to demonstrate a reduction in falls risk LTG Duration 05/18/24 One Impairment Pt does not have an appropriate home exercise program Short Term Goal (STG) Pt to be independent and compliant with an appropriate HEP STG Duration 04/17/24 Assessment Summary Assessment Pt stated like the tiring machine ex last tx but how can he continue for home as well without the machines. Pt demonstrates R hip abductor weakness during trial side SLR and LB discomfort, noted improved hip abd effort and tiring when modified resisted hooklying clamshells, cued for slower eccentric control single leg, provided HO for home. Trialed corner balance during PT with slight sways self corrections but no LOB ok for carryover home semitandem head turns and stationary looking forward tandem for home balance progression while do more advanced activities in PT, HOs provided for set up /recall and verbalized confidence. Reviewed increase water intake and call physician about the occasional blood in urine potentially needing further assessment. Physical Therapy Plan Frequency and Duration Frequency of Treatment 2x/Week Plan of Care Start Date 03/18/24 Plan of Care End Date 05/18/24 Therapeutic Interventions Therapeutic Interventions Balance Training,Gait Training ,Home Exercise Program,Joint Mobilizations,Manual Therapy, Neuromuscular Re-education, Patient/Caregiver Education, Self-Care/Home Management,Soft Tissue Mobilization, Therapeutic Activities, Therapeutic Exercises Next Visit Focus/Plan Next Note Type Treatment Note Next Visit Plan Recheck given HEP supine clam, seated TB and corner balance. POC: Progress Balance challenges, hip strengthening, activity tolerance
--- NOTE | 2024-04-01 14:31 | PT.OTN ---
Current Diagnoses Unsteadiness on feet (04/01/24) Other abnormalities of gait and mobility (04/01/24) Physical Therapy Treatment Note PT-OP-A Visit Information Start: 03/18/24 17:37 Freq: Status: Active Protocol: Document 04/01/24 13:47 DCW (Rec: 04/01/24 14:31 DCW [id number]) Out-Patient Physical Therapy Visit Information Visit Information Visit Type Treatment Note Visit Start Time 13:47 Visit Stop Time 14:30 Visit Number 5 Number of HOB MILL OPERATOR Visits 0 Evaluation Information Evaluation Date 03/18/24 PT-OP-B Current Condition Start: 03/18/24 17:37 Freq: Status: Active Protocol: Document 03/18/24 16:10 DCW (Rec: 03/18/24 17:49 DCW [id number]) Current Condition History of Current Condition Onset Date Multi-year history Current Complaints Weakness, imbalance, fatigue, deconditioning History of Current Condition Pt is an 83 year old male presenting with a two year history of decreased activity tolerance, weakness, and poor balance. Pt notes that about two years ago, he was hospitalized with an unknown illness, and spent a month in the hospital bed, and another two weeks in rehab with minimal movement. Pt notes that he has had poor activity tolerance since then, I'm just tired all the time, and my balance is shot. [facility], but admits that it is pretty easy stuff, doesn't feel like he gets much out of it. PT-OP-C Subjective Start: 03/18/24 17:37 Freq: Status: Active Protocol: Document 04/01/24 13:47 DCW (Rec: 04/01/24 14:31 DCW [id number]) OP-PT Subjective Patient Comments Patient Comments Pt notes he prefers to be pushed more when here at therapy. PT-OP-D Balance Start: 03/18/24 17:37 Freq: Status: Active Protocol: Document 03/18/24 16:10 DCW (Rec: 03/18/24 17:49 DCW [id number]) Balance Tests Lozano Balance Test Lozano Balance Test Score 47/56 Lozano Balance Assessment Evaluation Sitting to Standing Ability Independent w/out Hands Unsupported Stance Safely- 2 minutes Sitting Unsupported, Feet on Floor Safely- 2 minutes Standing to Sitting Ability Safely, Minimal Hand Use Transfer Ability Safely, Minimal Hand Use Unsupported Stance- Eyes Closed Safely, 10 seconds Unsupported Stance- Eyes Open Independent, 1 minute Reaching Forward Standing Confidently, 10 inches Pick- Up Object From Floor Independent/Safe Look Behind Shoulder - Standing Turns Sideways Only Turning 360 Degrees Turns slowly, but safely Unsupported Stance, Alternating Feet on 4 Steps w/Supervision Stair Unsupported Tandem Stance Achieves Tandem Unilateral Leg Stance Lifts Leg/Unable to Hold Total Score Lozano Total Score (out of 56 points) 47 Lozano Impairment Rating 1 to 19% Impaired (Score 45-55 ) PT-OP-E Functional Tests Start: 03/18/24 17:37 Freq: Status: Active Protocol: Document 03/18/24 16:10 DCW (Rec: 03/18/24 17:49 DCW [id number]) Functional Tests Dynamic Gait Index (DGI) Score 16 DGI Impairment Rating 20 to <40% Impaired (Score 15- 19) PT-OP-M Strength Start: 03/18/24 17:37 Freq: Status: Active Protocol: Document 03/18/24 16:10 DCW (Rec: 03/18/24 17:49 DCW [id number]) Hip Strength Hip Manual Muscle Testing Right Flexion (L2) 4 Good Abduction 4- Good- Adduction 4+ Good+ External Rotation 4+ Good+ Internal Rotation 4 Good Left Flexion (L2) 4 Good Abduction 4- Good- Adduction 4+ Good+ External Rotation 4+ Good+ Internal Rotation 4+ Good+ Knee Strength Knee Manual Muscle Testing Right Flexion (S2) 4+ Good+ Extension (L3) 4+ Good+ Left Flexion (S2) 4+ Good+ Extension (L3) 4+ Good+ Ankle/Foot Strength Ankle and Foot Manual Muscle Testing Right Dorsiflexion (L4) 4 Good Left Dorsiflexion (L4) 4 Good PT-OP-Q Treatments Start: 03/18/24 17:37 Freq: Status: Active Protocol: Document 04/01/24 13:47 DCW (Rec: 04/01/24 14:31 DCW [id number]) Gym Equipment Cable Column (Body Solid) Leg Curl Resistance 50# Leg Extension Resistance 40# Hip Adduction Resistance 50# Reps/Time 2x15 Hip Abduction Resistance 50#->40# Reps/Time 2x15 Shuttle Balance Red Details WBOS, Staggered, Lateral Weight Shift Neuro Re-Education Treatment Balance Activities Dynamic Gait Details Hallway ambulation Comments Head turns (90 bpm) Tandem Gait Retro Ambulation Uneven Surface Surface Uneven blue pad PT-OP-T Assessment and Plan Start: 03/18/24 17:37 Freq: Status: Active Protocol: Document 04/01/24 13:47 DCW (Rec: 04/01/24 14:31 DCW [id number]) Physical Therapy Assessment Impairments Impairments Activity Tolerance,Balance, Functional Activities, Functional Mobility,Strength Goals Three Impairment MMT of 4-/5 hip abduction bilaterally Portfolio Administrator Goal (LTG) Pt to increase MMT of hip abduction to at least 4/5 to assist activity tolerance and increase stability during gait . LTG Duration 05/18/24 Two Impairment Pt presents as an increased falls risk, per DGI score () Portfolio Administrator Goal (LTG) Pt to improve DGI score by at least four points to , in order to demonstrate a reduction in falls risk LTG Duration 05/18/24 One Impairment Pt does not have an appropriate home exercise program Short Term Goal (STG) Pt to be independent and compliant with an appropriate HEP STG Duration 04/17/24 Assessment Summary Assessment Pt continues to feel limited due to right leg pain. Did spend time today stressing importance of follow-through with HEP. Pt admitted to being frustrated today due to not doing as well as he expects to. Physical Therapy Plan Frequency and Duration Frequency of Treatment 2x/Week Plan of Care Start Date 03/18/24 Plan of Care End Date 05/18/24 Therapeutic Interventions Therapeutic Interventions Balance Training,Gait Training ,Home Exercise Program,Joint Mobilizations,Manual Therapy, Neuromuscular Re-education, Patient/Caregiver Education, Self-Care/Home Management,Soft Tissue Mobilization, Therapeutic Activities, Therapeutic Exercises Next Visit Focus/Plan Next Note Type Treatment Note Next Visit Plan Recheck given HEP supine clam, seated TB and corner balance. POC: Progress Balance challenges, hip strengthening, activity tolerance
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
--- NOTE | 2024-04-29 10:53 | PT.OTN ---
Current Diagnoses Unsteadiness on feet (04/29/24) Other abnormalities of gait and mobility (04/29/24) Physical Therapy Treatment Note PT-OP-A Visit Information Start: 03/18/24 17:37 Freq: Status: Active Protocol: Document 04/29/24 08:51 AB (Rec: 04/29/24 10:53 AB [id number]) Out-Patient Physical Therapy Visit Information Visit Information Visit Type Treatment Note Visit Start Time 09:08 Visit Stop Time 09:46 Visit Number 7 Number of GM/SVP GLOBAL PUBLISHER BUSINESS Visits 1 Evaluation Information Evaluation Date 03/18/24 PT-OP-B Current Condition Start: 03/18/24 17:37 Freq: Status: Active Protocol: Document 03/18/24 16:10 DCW (Rec: 03/18/24 17:49 DCW [id number]) Current Condition History of Current Condition Onset Date Multi-year history Current Complaints Weakness, imbalance, fatigue, deconditioning History of Current Condition Pt is an 83 year old male presenting with a two year history of decreased activity tolerance, weakness, and poor balance. Pt notes that about two years ago, he was hospitalized with an unknown illness, and spent a month in the hospital bed, and another two weeks in rehab with minimal movement. Pt notes that he has had poor activity tolerance since then, I'm just tired all the time, and my balance is shot. Does attend exercise classes at the [facility], but admits that it is pretty easy stuff, doesn't feel like he gets much out of it. PT-OP-C Subjective Start: 03/18/24 17:37 Freq: Status: Active Protocol: Document 04/29/24 08:51 AB (Rec: 04/29/24 10:53 AB [id number]) OP-PT Subjective Patient Comments Patient Comments Patient reports left leg is painful and weak, not quite 5/ 10 start of session. Patient reports he tripped blowing leaves the other day and fell, hit is right hip, but it's OK. Patient reports having no pain right hip, and reports did go to or call MD. Patient reprots he is not good about doing the exercises, tries to perform exercises once a day, for squats. Patient comments that he gets headaches and neck pain at night over the past couple of months. 8 sec right 5 sec left SLS without UE use PT-OP-D Balance Start: 03/18/24 17:37 Freq: Status: Active Protocol: Document 03/18/24 16:10 DCW (Rec: 03/18/24 17:49 DCW [id number]) Balance Tests Lozano Balance Test Lozano Balance Test Score 47/56 Lozano Balance Assessment Evaluation Sitting to Standing Ability Independent w/out Hands Unsupported Stance Safely- 2 minutes Sitting Unsupported, Feet on Floor Safely- 2 minutes Standing to Sitting Ability Safely, Minimal Hand Use Transfer Ability Safely, Minimal Hand Use Unsupported Stance- Eyes Closed Safely, 10 seconds Unsupported Stance- Eyes Open Independent, 1 minute Reaching Forward Standing Confidently, 10 inches Pick- Up Object From Floor Independent/Safe Look Behind Shoulder - Standing Turns Sideways Only Turning 360 Degrees Turns slowly, but safely Unsupported Stance, Alternating Feet on 4 Steps w/Supervision Stair Unsupported Tandem Stance Achieves Tandem Unilateral Leg Stance Lifts Leg/Unable to Hold Total Score Lozano Total Score (out of 56 points) 47 Lozano Impairment Rating 1 to 19% Impaired (Score 45-55 ) PT-OP-E Functional Tests Start: 03/18/24 17:37 Freq: Status: Active Protocol: Document 03/18/24 16:10 DCW (Rec: 03/18/24 17:49 DCW [id number]) Functional Tests Dynamic Gait Index (DGI) Score 1624 DGI Impairment Rating 20 to <40% Impaired (Score 15- 19) PT-OP-M Strength Start: 03/18/24 17:37 Freq: Status: Active Protocol: Document 03/18/24 16:10 DCW (Rec: 03/18/24 17:49 DCW [id number]) Hip Strength Hip Manual Muscle Testing Right Flexion (L2) 4 Good Abduction 4- Good- Adduction 4+ Good+ External Rotation 4+ Good+ Internal Rotation 4 Good Left Flexion (L2) 4 Good Abduction 4- Good- Adduction 4+ Good+ External Rotation 4+ Good+ Internal Rotation 4+ Good+ Knee Strength Knee Manual Muscle Testing Right Flexion (S2) 4+ Good+ Extension (L3) 4+ Good+ Left Flexion (S2) 4+ Good+ Extension (L3) 4+ Good+ Ankle/Foot Strength Ankle and Foot Manual Muscle Testing Right Dorsiflexion (L4) 4 Good Left Dorsiflexion (L4) 4 Good PT-OP-Q Treatments Start: 03/18/24 17:37 Freq: Status: Active Protocol: Document 04/29/24 08:51 AB (Rec: 04/29/24 10:53 AB [id number]) Gym Equipment Shuttle Balance Red Details WBOS Comments CGA hands above bars VC for visual scanning and head turns X 1 Therapeutic Exercises Sitting Exercises hip abduction Sitting Exercise Name isometric clamshell- reviewed HEP Resistance TB #4 dark blue at thighs Equipment Used one min hold for activation to HEP Reps/Minutes 2X15 w/o hold one minute hold X 1 Comments Patient ed rationale of one minute hold Other Exercises sit to stand Other Exercise Name Pt ed to decrease to every other day if able to annelise 3X10 Side bilateral Reps/Minutes X10 X 3 Comments Pt ed pain rules for strength, mech of sit to stand and hip hinge tact cue heel raise bilateral Other Exercise Name with UE support HEP Side bilateral Reps/Minutes X15 X 2 Comments vc to lower heels to floor slowly Neuro Re-Education Treatment Balance Activities tandem stepping Details fwd and retro Reps/Duration 10 feet X 6 Comments CGA hands above bars step up taps Details standing on air ex to 6 inch step Reps/Duration X10 X 2 Comments CGA hands above bars Head turns X 1 and visual scanning hurdles Details CGA hands above bars Reps/Duration 10feet X6 PT-OP-T Assessment and Plan Start: 03/18/24 17:37 Freq: Status: Active Protocol: Document 04/29/24 08:51 AB (Rec: 04/29/24 10:53 AB [id number]) Physical Therapy Assessment Goals Three Impairment MMT of 4-/5 hip abduction bilaterally Valve Repairer Reclamation Goal (LTG) Pt to increase MMT of hip abduction to at least 4/5 to assist activity tolerance and increase stability during gait . LTG Duration 05/18/24 Two Impairment Pt presents as an increased falls risk, per DGI score () Longterm Goal (LTG) Pt to improve DGI score by at least four points to , in order to demonstrate a reduction in falls risk LTG Duration 05/18/24 One Impairment Pt does not have an appropriate home exercise program Short Term Goal (STG) Pt to be independent and compliant with an appropriate HEP STG Duration 04/17/24 Assessment Summary Assessment Patient reports pain is barely noticable end of session. Increased trunk shaking throughout shuttle balance activity. Limited head turns performed this session due to reports of neck pain at night at home and diffuclty turning head when driving (Pt demonstrates turning trunk when needing to turn head when driving.) Physical Therapy Plan Frequency and Duration Frequency of Treatment 2x/Week Plan of Care Start Date 03/18/24 Plan of Care End Date 05/18/24 Next Visit Focus/Plan Next Note Type Treatment Note Next Visit Plan Recheck given HEP supine clam, seated TB and corner balance. POC: Progress Balance challenges, hip strengthening, activity tolerance
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
--- NOTE | 2024-05-12 12:47 | PT.OTN ---
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 Pt notes that about two years ago, he was hospitalized with an unknown illness, and spent a month in the hospital bed, and another two weeks in rehab with minimal movement. Pt notes that he has had poor activity tolerance since then, I'm just tired all the time, and my balance is shot. Does attend exercise classes at the [facility], but admits that it is pretty easy stuff, doesn't feel like he gets much out of it. PT-OP-C Subjective Start: 03/18/24 17:37 Freq: Status: Active Protocol: Document 05/12/24 08:06 AB (Rec: 05/12/24 12:47 AB [id number]) OP-PT Subjective Patient Comments Patient Comments Patient into session with home exercise handouts, requesting review of supine piriformis stretch. PT-OP-D Balance Start: 03/18/24 17:37 Freq: Status: Active Protocol: Document 03/18/24 16:10 DCW (Rec: 03/18/24 17:49 DCW [id number]) Balance Tests Lozano Balance Test Lozano Balance Test Score 47/56 Lozano Balance Assessment Evaluation Sitting to Standing Ability Independent w/out Hands Unsupported Stance Safely- 2 minutes Sitting Unsupported, Feet on Floor Safely- 2 minutes Standing to Sitting Ability Safely, Minimal Hand Use Transfer Ability Safely, Minimal Hand Use Unsupported Stance- Eyes Closed Safely, 10 seconds Unsupported Stance- Eyes Open Independent, 1 minute Reaching Forward Standing Confidently, 10 inches Pick- Up Object From Floor Independent/Safe Look Behind Shoulder - Standing Turns Sideways Only Turning 360 Degrees Turns slowly, but safely Unsupported Stance, Alternating Feet on 4 Steps w/Supervision Stair Unsupported Tandem Stance Achieves Tandem Unilateral Leg Stance Lifts Leg/Unable to Hold Total Score Lozano Total Score (out of 56 points) 47 Lozano Impairment Rating 1 to 19% Impaired (Score 45-55 ) PT-OP-E Functional Tests Start: 03/18/24 17:37 Freq: Status: Active Protocol: Document 03/18/24 16:10 DCW (Rec: 03/18/24 17:49 DCW [id number]) Functional Tests Dynamic Gait Index (DGI) Score 16 DGI Impairment Rating 20 to <40% Impaired (Score 15- 19) PT-OP-M Strength Start: 03/18/24 17:37 Freq: Status: Active Protocol: Document 03/18/24 16:10 DCW (Rec: 03/18/24 17:49 DCW [id number]) Hip Strength Hip Manual Muscle Testing Right Flexion (L2) 4 Good Abduction 4- Good- Adduction 4+ Good+ External Rotation 4+ Good+ Internal Rotation 4 Good Left Flexion (L2) 4 Good Abduction 4- Good- Adduction 4+ Good+ External Rotation 4+ Good+ Internal Rotation 4+ Good+ Knee Strength Knee Manual Muscle Testing Right Flexion (S2) 4+ Good+ Extension (L3) 4+ Good+ Left Flexion (S2) 4+ Good+ Extension (L3) 4+ Good+ Ankle/Foot Strength Ankle and Foot Manual Muscle Testing Right Dorsiflexion (L4) 4 Good Left Dorsiflexion (L4) 4 Good PT-OP-Q Treatments Start: 03/18/24 17:37 Freq: Status: Active Protocol: Document 05/12/24 08:06 AB (Rec: 05/12/24 12:47 AB [id number]) Gym Equipment Shuttle Recovery Unilateral Squats Details cued no locking knee Resistance 37# Reps/Time x15 Bilateral Squats Details cued no locking knee Resistance 75# Reps/Time X30 Shuttle Balance Red Details stagger stance , narrow LANDON Comments CGA hands above bars with visual scanning and head turns Therapeutic Exercises Supine Exercises piriformis stretch Side bilateral Reps/Minutes 60 sec X 2 each LE Comments verbal cues clamshell Supine Exercise Name initiated in PT- added to HEP for core/hip abd strengthening Side bilateral Resistance level 2 Equipment Used R>L weakness Reps/Minutes X10 Comments Pt ed self tactile cues at pelvis Standing Exercises Hip Extension Standing Exercise Name Hip Extension- added to HEP /c HO Side bilateral Resistance level 4 royal blue band Reps/Minutes x15 reps Comments VC to avoid leaning fwd Other Exercises sit to stand Side bilateral Reps/Minutes 2X10 Comments VC to increase hip hinge, fwd trunk on initiation heel raise bilateral Other Exercise Name with UE support HEP Side bilateral Reps/Minutes X15 X 2 Comments vc to lower heels to floor slowly Neuro Re-Education Treatment Balance Activities wall fall Reps/Duration X8 Comments verbal and visual cues tandem stepping Details fwd and retro Reps/Duration 10 feet X 6 ( 3 fwd 3 retro) Comments CGA hands above bars step up taps Details standing on air ex to 6 inch step Reps/Duration X12 hurdles Details CGA hands above bars Reps/Duration 10feet X6 PT-OP-T Assessment and Plan Start: 03/18/24 17:37 Freq: Status: Active Protocol: Document 05/12/24 08:06 AB (Rec: 05/12/24 12:47 AB [id number]) Physical Therapy Assessment Goals Three Impairment MMT of 4-/5 hip abduction bilaterally Shelter Goal (LTG) Pt to increase MMT of hip abduction to at least 4/5 to assist activity tolerance and increase stability during gait . LTG Duration 05/18/24 Two Impairment Pt presents as an increased falls risk, per DGI score () Shelter Goal (LTG) Pt to improve DGI score by at least four points to , in order to demonstrate a reduction in falls risk LTG Duration 05/18/24 One Impairment Pt does not have an appropriate home exercise program Short Term Goal (STG) Pt to be independent and compliant with an appropriate HEP STG Duration 04/17/24 Assessment Summary Assessment Patient reports having no pain , just tired ed of session. Patient ed importance of peforming HEP for functional outcome Physical Therapy Plan Frequency and Duration Frequency of Treatment 2x/Week Plan of Care Start Date 03/18/24 Plan of Care End Date 05/18/24 Next Visit Focus/Plan Next Note Type Progress Note Next Visit Plan POC: Progress Balance challenges, hip strengthening, activity tolerance
--- NOTE | 2024-05-29 12:26 | PT-OP ANOTE ---
Pt arrived for his 1130 appointment at 1220. Was able to be rescheduled for the following Saturday.
--- NOTE | 2024-06-01 11:19 | PT.OTN ---
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 Pt notes that about two years ago, he was hospitalized with an unknown illness, and spent a month in the hospital bed, and another two weeks in rehab with minimal movement. Pt notes that he has had poor activity tolerance since then, I'm just tired all the time, and my balance is shot. [facility], but admits that it is pretty easy stuff, doesn't feel like he gets much out of it. PT-OP-C Subjective Start: 03/18/24 17:37 Freq: Status: Active Protocol: Document 06/01/24 10:45 DCW (Rec: 06/01/24 11:19 DCW [id number]) OP-PT Subjective Patient Comments Patient Comments Pt reports he feels like PT has helped a lot, he just needs to be more motivated to do more on his own. PT-OP-D Balance Start: 03/18/24 17:37 Freq: Status: Active Protocol: Document 03/18/24 16:10 DCW (Rec: 03/18/24 17:49 DCW [id number]) Balance Tests Lozano Balance Test Lozano Balance Test Score 47/56 Lozano Balance Assessment Evaluation Sitting to Standing Ability Independent w/out Hands Unsupported Stance Safely- 2 minutes Sitting Unsupported, Feet on Floor Safely- 2 minutes Standing to Sitting Ability Safely, Minimal Hand Use Transfer Ability Safely, Minimal Hand Use Unsupported Stance- Eyes Closed Safely, 10 seconds Unsupported Stance- Eyes Open Independent, 1 minute Reaching Forward Standing Confidently, 10 inches Pick- Up Object From Floor Independent/Safe Look Behind Shoulder - Standing Turns Sideways Only Turning 360 Degrees Turns slowly, but safely Unsupported Stance, Alternating Feet on 4 Steps w/Supervision Stair Unsupported Tandem Stance Achieves Tandem Unilateral Leg Stance Lifts Leg/Unable to Hold Total Score Lozano Total Score (out of 56 points) 47 Lozano Impairment Rating 1 to 19% Impaired (Score 45-55 ) PT-OP-E Functional Tests Start: 03/18/24 17:37 Freq: Status: Active Protocol: Document 06/01/24 10:45 DCW (Rec: 06/01/24 11:13 DCW [id number]) Functional Tests Dynamic Gait Index (DGI) Score 22/24 DGI Impairment Rating 1 to <20% Impaired (Score 20- 23) PT-OP-M Strength Start: 03/18/24 17:37 Freq: Status: Active Protocol: Document 06/01/24 10:45 DCW (Rec: 06/01/24 11:13 DCW [id number]) Hip Strength Hip Manual Muscle Testing Right Flexion (L2) 4 Good Abduction 4 Good Adduction 4+ Good+ Left Flexion (L2) 4 Good Abduction 4 Good Adduction 4+ Good+ PT-OP-Q Treatments Start: 03/18/24 17:37 Freq: Status: Active Protocol: Document 06/01/24 10:45 DCW (Rec: 06/01/24 11:19 DCW [id number]) Self-Care/Home Management Treatment Education Other Education Edu regarding importance of HEP, continuing to get out, walk, and be active, discussed plans to return to PT in the future if pt feels he reaches a progress plateau PT-OP-T Assessment and Plan Start: 03/18/24 17:37 Freq: Status: Active Protocol: Document 06/01/24 10:45 DCW (Rec: 06/01/24 11:19 DCW [id number]) Physical Therapy Assessment Goals Three Impairment MMT of 4-/5 hip abduction bilaterally Manager Ent Goal (LTG) Pt to increase MMT of hip abduction to at least 4/5 to assist activity tolerance and increase stability during gait . LTG Duration Met Two Impairment Pt presents as an increased falls risk, per DGI score () Manager Ent Goal (LTG) Pt to improve DGI score by at least four points to 20, in order to demonstrate a reduction in falls risk LTG Duration Met One Impairment Pt does not have an appropriate home exercise program Short Term Goal (STG) Pt to be independent and compliant with an appropriate HEP STG Duration Met Progress Towards Goals Progress Towards Goals Goals Met Assessment Summary Assessment Pt has met all goals. Feels comfortable in his HEP, just needs to actually do it. Pt admits he feels his right leg just feels off, which limits his desire to do as much walking. Pt agreeable with discharge at this time. Physical Therapy Plan Frequency and Duration Frequency of Treatment 1x/Week Plan of Care Start Date 06/01/24 Plan of Care End Date 06/02/24 Discharge Physical Therapy Discharge Reasons Goals Met Next Visit Focus/Plan Next Note Type Discharge Summary
--- NOTE | 2024-06-01 11:20 | PT.OPPOC ---
Physical, Occupational & Speech Therapy At [facility] Current Diagnoses Unsteadiness on feet (06/01/24) Other abnormalities of gait and mobility (06/01/24) Visit Care Team Role Provider Type Tod Juarez MD Attending Provider Physician Family Provider Primary Care Provider Referring Provider Specialty: [facility] Address: [address] [place] [address], [facility] Email: [email or web address] Plan Of Care PT-OP-B Current Condition Start: 03/18/24 17:37 Freq: Status: Active Protocol: Document 03/18/24 16:10 DCW (Rec: 03/18/24 17:49 DCW [id number]) Current Condition History of Current Condition Onset Date Multi-year history Current Complaints Weakness, imbalance, fatigue, deconditioning History of Current Condition Pt is an 83 year old male presenting with a two year history of decreased activity tolerance, weakness, and poor balance. Pt notes that about two years ago, he was hospitalized with an unknown illness, and spent a month in the hospital bed, and another two weeks in rehab with minimal movement. Pt notes that he has had poor activity tolerance since then, I'm just tired all the time, and my balance is shot. Does attend exercise classes at the [facility], but admits that it is pretty easy stuff, doesn't feel like he gets much out of it. PT-OP-T Assessment and Plan Start: 03/18/24 17:37 Freq: Status: Active Protocol: Document 06/01/24 10:45 DCW (Rec: 06/01/24 11:19 DCW [id number]) Physical Therapy Assessment Goals Three Impairment MMT of 4-/5 hip abduction bilaterally [place] Goal (LTG) Pt to increase MMT of hip abduction to at least 4/5 to assist activity tolerance and increase stability during gait . LTG Duration Met Two Impairment Pt presents as an increased falls risk, per DGI score () [place] Goal (LTG) Pt to improve DGI score by at least four points to , in order to demonstrate a reduction in falls risk LTG Duration Met One Impairment Pt does not have an appropriate home exercise program Short Term Goal (STG) Pt to be independent and compliant with an appropriate HEP STG Duration Met Progress Towards Goals Progress Towards Goals Goals Met Assessment Summary Assessment Pt has met all goals. Feels comfortable in his HEP, just needs to actually do it. Pt admits he feels his right leg just feels off, which limits his desire to do as much walking. Pt agreeable with discharge at this time. Physical Therapy Plan Frequency and Duration Frequency of Treatment 1x/Week Plan of Care Start Date 06/01/24 Plan of Care End Date 06/02/24 Discharge Physical Therapy Discharge Reasons Goals Met Next Visit Focus/Plan Next Note Type Discharge Summary Plan of Care Dates Plan of Care Start Date 06/01/24 Plan of Care End Date 06/02/24 Electronically Signed by: Manoj Alcocer, PT 06/01/24 9300 If you are in agreement with this Plan of Care, please return a signed and dated copy. I have reviewed this Plan of Care and certify that the skilled therapy services above are required to meet the patient?s needs. Physician Signature Date Printed Name and Credentials Clinical Instructor Signature Printed Name and Credentials
== END 2024-06-03 14:05 | disposition home or self-care (01) ==
LOC: PHYS 10:45
PROVIDERS: Family Provider Family Medicine; PCP Family Medicine; Referring Provider Family Medicine; Visit Provider Family Medicine
DX: R26.89 Other abnormalities of gait and mobility (principal); R26.81 Unsteadiness on feet
CPT/HCPCS: 97110; 97112; 97116; 97162; 97535

== ENCOUNTER → 2024-09-15 10:44 | Outpatient (CLI) | payer MEDICARE, SELFPAY ==
[2020-02-01 15:20] VITALS: BMI 26.6
--- NOTE | 2024-09-15 10:47 | DI.RAD.S_ITS ---
PROCEDURE: XR HIP W PEL IF DONE RT 2V INDICATIONS: right leg pain TECHNIQUE: AP pelvis with lateral view(s) of the right hip(s). COMPARISON: None. FINDINGS: Bones: No acute fractures or dislocations. Pelvic ring appears intact. No suspicious bony lesions. Degenerative changes of the bilateral hips slightly more pronounced on the right. Moderate lower lumbar spondylosis. Soft tissues: The visualized bowel gas pattern is normal. No suspicious soft tissue calcifications. Surgical clips noted in the pelvis. IMPRESSION: Right hip without acute fracture or dislocation. Degenerative changes of the bilateral hips more pronounced on the right. Moderate lower lumbar spondylosis. Dictated by: Darrian Sarabia M.D. on 09/15/2024 at 14:14 Approved by: Darrian Sarabia M.D. on 09/15/2024 at 14:16
--- NOTE | 2024-09-15 10:47 | DI.RAD.S_ITS ---
PROCEDURE: XR KNEE RT 3V INDICATIONS: right leg pain TECHNIQUE: 3 views of the knee were acquired. COMPARISON: None. FINDINGS: Bones: No fractures or dislocations. No suspicious bony lesions. Tricompartmental osteoarthrosis of the right knee. Marginal osteophyte formation. Enthesophyte involving the superior pole the patella. Soft tissues: No joint effusion. No suspicious soft tissue calcifications. IMPRESSION: Right knee without acute osseous abnormalities. Tricompartmental right knee osteoarthrosis. Dictated by: Darrian Sarabia M.D. on 09/15/2024 at 14:16 Approved by: Darrian Sarabia M.D. on 09/15/2024 at 14:17
--- NOTE | 2024-09-15 10:47 | DI.RAD.S_ITS ---
PROCEDURE: XR SOFT TISSUE NECK INDICATIONS: neck pain TECHNIQUE: 2 views of the neck were acquired. COMPARISON: None. FINDINGS: Airway: The airway appears patent. Soft tissues: Prevertebral soft tissues are normal in thickness. The epiglottis and aryepiglottic folds appear normal. No soft tissue gas. Bones: No suspicious bony lesions. Visualized cervical spine is normally aligned. Multilevel cervical spondylosis most pronounced in the lower cervical spine. No acute compression fracture. IMPRESSION: Cervical spine without acute radiographic abnormalities. Multilevel cervical spondylosis most pronounced in the lower cervical spine. Dictated by: Darrian Sarabia M.D. on 09/15/2024 at 14:17 Approved by: Darrian Sarabia M.D. on 09/15/2024 at 14:18
[2024-09-15 12:18] LABS: Blood Urea Nitrogen 20 mg/dL (9-20); Carbon Dioxide 27 mmol/L (22-32); Chloride 107 mmol/L (98-107); Creatine Kinase 132 U/L (55-170); Estimated Glomerular Filt Rate > 60 mL/min (>60); Glucose 97 mg/dL (80-110); HEMOLYSIS 25 (0-50); Magnesium 2.1 mg/dL (1.6-2.3); Sodium 145 mmol/L (137-145)
[2024-09-15 12:19] LABS: Potassium 5.4 mmol/L (3.4-5.1)
[2024-09-15 12:31] LABS: TSH w/ Reflex to FT4 0.69 uIU/mL (0.47-4.68)
== END ==
PROVIDERS: Family Provider Family Medicine; PCP Family Medicine; Referring Provider Family Medicine; Visit Provider Family Medicine
DX: M54.2 Cervicalgia (principal); M47.812 Spondylosis without myelopathy or radiculopathy, cervical region; M17.11 Unilateral primary osteoarthritis, right knee; M47.816 Spondylosis without myelopathy or radiculopathy, lumbar region; M79.604 Pain in right leg; R26.89 Other abnormalities of gait and mobility; I48.0 Paroxysmal atrial fibrillation; R53.83 Other fatigue; Z13.29 Encounter for screening for other suspected endocrine disorder
CPT/HCPCS: 36415; 70360; 73502; 73562; 80048; 82550; 83735; 84443

== ENCOUNTER → 2024-10-31 12:55 | Outpatient (CLI) | payer MEDICARE, SELFPAY ==
[2020-02-01 15:20] VITALS: BMI 26.6
--- NOTE | 2024-10-31 12:59 | DI.MRI.S_ITS ---
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 After the administration of contrast, axial/sagittal/coronal T1 spin echo with fat saturation through the right upper back . COMPARISON: [facility], MR, MR CHEST WO/W CON, 07/02/2023, 11:14. [facility], CT, CT CHEST ABD PEL W CON, 03/14/2023, 11:42. [facility], MR, MR CHEST WO/W CON, 04/10/2024, 15:18. [facility], MR, MR CHEST WO/W CON, 02/08/2024, 11:42. FINDINGS: Image quality: Excellent. Bones: The visualized bone marrow demonstrates normal signal on all sequences. The overlying cortex appears intact. No abnormal intraosseous enhancement. Soft tissues: Postsurgical changes are again seen at the medial right upper back and lower neck. No recurrent nodular enhancing mass is seen. No suspicious enhancing mass identified in the remainder of the exam. Posterior dependent atelectasis or consolidation at the right lung base. No significant pleural effusion. Visualized musculature demonstrates overall normal signal. No axillary lymphadenopathy. IMPRESSION: Stable postsurgical changes in the right posterior chest. No MR evidence of local recurrence. Approved by: Robert Davila M.D. on 11/02/2024 at 12:30
--- NOTE | 2024-10-31 12:59 | DI.CT.S_ITS ---
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 1 mm lung window, 5 mm thick coronal and sagittal and 7 mm axial MIP reformats were then acquired. For radiation dose reduction, the following was used: automated exposure control, adjustment of mA and/or kV according to patient size. COMPARISON: [facility], CT, CT CHEST WO CON, 04/10/2024, 14:47. FINDINGS: Image quality: Diagnostic. Lower Neck: No enlarged lymph nodes. Thyroid: No thyroid nodules which require sonographic follow up, per consensus guidelines. Axillae: No enlarged lymph nodes. Chest Wall: Scarring at the right paramedian upper back, (2/40), unchanged. No mass seen. Bones: No suspicious osseous lesion. Lungs and Pleura: No pneumothorax or pleural effusions. No acute airspace opacity. Right middle lobe pulmonary nodule measuring 0.5 cm, (3/180), unchanged. No new or enlarging pulmonary nodule seen. A few calcified granulomas. Heart: Heart size is normal. No pericardial effusion. Thoracic Vessels: The aorta and pulmonary arteries demonstrate normal size. Mediastinum and Stacia: No enlarged lymph nodes. Calcified mediastinal and right hilar lymph nodes. Esophagus: No wall thickening. No hiatal hernia. Upper Abdomen: Visualized upper abdomen solid organs and bowel loops appear normal. Post cholecystectomy. Calcified granulomas in the spleen and liver. IMPRESSION: 1. No mass or metastatic disease identified. 2. Subtle scarring at the right upper back. Dictated by: Brant Byrnes M.D. on 11/01/2024 at 14:36 Approved by: Brant Byrnes M.D. on 11/01/2024 at 14:48
== END ==
PROVIDERS: Family Provider Family Medicine; PCP Family Medicine; Referring Provider Family Medicine; Visit Provider Physician Assistant Medical
DX: C49.6 Malignant neoplasm of connective and soft tissue of trunk, unspecified (principal)
CPT/HCPCS: 71250; 71552; A9579

== ENCOUNTER → 2024-11-09 14:23 | Outpatient (CLI) | payer MEDICARE, SELFPAY ==
[2020-02-01 15:20] VITALS: BMI 26.6
== END ==
PROVIDERS: Family Provider Family Medicine; PCP Family Medicine; Referring Provider Family Medicine; Visit Provider Family Medicine
DX: I48.91 Unspecified atrial fibrillation (principal); I48.92 Unspecified atrial flutter
CPT/HCPCS: 93246; 93248

== ENCOUNTER → 2024-11-26 09:47 | Outpatient (CLI) | payer MEDICARE, SELFPAY ==
[2020-02-01 15:20] VITALS: BMI 26.6
[2024-11-26 10:40] LABS: Hematocrit 45.1 % (41-53); Hemoglobin 15.3 g/dL (13.5-17.5); Mean Corpuscular HGB Conc 33.9 % (30-36); Mean Corpuscular Hemoglobin 30.2 PG (26-34); Platelet Count 257 X10^3/uL (150-400); Red Blood Cell Count 5.07 X10^6/uL (4.5-5.9); Red Cell Distribution Width 14.2 % (11.6-14.8); White Blood Cell Count 9.1 X10^3/uL (4.5-11.0)
[2024-11-26 10:50] LABS: BUN Creatinine Ratio 25.3 (6-22); Blood Urea Nitrogen 22 mg/dL (9-20); Calcium 9.8 mg/dL (8.4-10.2); Carbon Dioxide 26 mmol/L (22-32); Chloride 106 mmol/L (98-107); Estimated Glomerular Filt Rate > 60 mL/min (>60); Glucose 94 mg/dL (70-99); HEMOLYSIS 33 (0-50); Potassium 4.4 mmol/L (3.4-5.1); Sodium 142 mmol/L (137-145)
== END ==
PROVIDERS: Family Provider Family Medicine; PCP Family Medicine; Referring Provider Family Medicine; Visit Provider Family Medicine
DX: E87.5 Hyperkalemia (principal); Z13.9 Encounter for screening, unspecified
CPT/HCPCS: 36415; 80048; 85027

== ENCOUNTER → 2025-04-05 12:39 | Outpatient (CLI) | payer MEDICARE, SELFPAY ==
[2020-02-01 15:20] VITALS: BMI 26.6
--- NOTE | 2025-04-05 12:41 | DI.MRI.S_ITS ---
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 After the administration of contrast, axial/sagittal/coronal T1 spin echo with fat saturation through the right chest . COMPARISON: [facility], MR, MR CHEST WO/W CON, 02/08/2024, 11:42. [facility], MR, MR CHEST WO/W CON, 04/10/2024, 15:18. [facility], MR, MR CHEST WO/W CON, 10/31/2024, 13:23. FINDINGS: Image quality: Excellent. Bones: The visualized bone marrow demonstrates normal signal on all sequences. The overlying cortex appears intact. No abnormal intraosseous enhancement. Soft tissues: Postsurgical changes are again noted in medial right upper back with subtle susceptibility artifacts at the site of surgery. No enhancing soft tissue mass or drainable fluid collection is noted to suggest local recurrence. No new soft tissue mass or fluid collection is noted in included portion of bilateral chest wall. Visualized right lung field is clear. IMPRESSION: 1. 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 No evidence of gross local recurrence. 2. No new soft tissue mass or drainable fluid collection is seen. No right axillary lymphadenopathy. 3. No marrow signal abnormalities are noted in visualized bony thorax. Dictated by: Anupam Lucero M.D. on 04/05/2025 at 16:29 Approved by: Anupam Lucero M.D. on 04/05/2025 at 16:32
--- NOTE | 2025-04-05 12:41 | DI.CT.S_ITS ---
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 1 mm lung window, 5 mm thick coronal and sagittal and 7 mm axial MIP reformats were then acquired. For radiation dose reduction, the following was used: automated exposure control, adjustment of mA and/or kV according to patient size. COMPARISON: [facility], CT, CT CHEST WO CON, 10/31/2024, 13:05. FINDINGS: Image quality: Diagnostic. Lungs and Pleura: Occasional right lung calcifications and parenchymal cysts. Minor bilateral bronchial wall thickening diffusely. No bronchiectasis. No mass, ground-glass opacity, or consolidation. 5 mm solid nodule laterally in the right middle lobe, 3/187, stable triangular subpleural nodule anterolateral left upper lobe, intrapulmonary lymph node. No pleural effusions or pleural calcifications. Lower Neck: No enlarged lymph nodes. Thyroid: Normal CT appearance. Axillae: No enlarged lymph nodes. Chest Wall: Skin retraction in the right paramedian soft tissues at the T5 through T7 level. No visible underlying soft tissue mass. Bones: No suspicious rib or vertebral body lesion. There are bridging endplate osteophytes throughout the thoracic spine and several endplate Schmorl's nodes. Thoracic Vessels: The aorta and pulmonary arteries demonstrate normal size. Mediastinum and Stacia: No enlarged lymph nodes. Calcified, nonenlarged right hilar lymph nodes. Heart: Heart size is normal. No pericardial effusion. Mild coronary calcification. Esophagus: No wall thickening. No hiatal hernia. Upper Abdomen: Cholecystectomy change. Punctate calcifications in the liver and spleen. Visible portions of upper abdominal organs are otherwise normal. IMPRESSION: Resection bed in the right posterior back is again seen, stable without evidence of local recurrence. No evidence of metastatic disease in the chest. Dictated by: Andie Burch M.D. on 04/05/2025 at 15:25 Approved by: Andie Burch M.D. on 04/05/2025 at 15:35
== END ==
LOC: CT 12:40
PROVIDERS: Family Provider Family Medicine; PCP Family Medicine; Referring Provider Family Medicine; Visit Provider Orthopaedic Surgery
DX: C49.6 Malignant neoplasm of connective and soft tissue of trunk, unspecified (principal); I25.10 Atherosclerotic heart disease of native coronary artery without angina pectoris
CPT/HCPCS: 71250; 71552; A9579